=== PATIENT | male | born 1940 | race Caucasian/White ===

== ENCOUNTER 2017-02-24 06:48 | Inpatient (IN) | payer MEDICARE, OTHER ==
[2017-02-24] VITALS (13 sets, daily range): BP systolic 94–161; BP diastolic 53–89; PULSE 81–130; RESP 22–33; O2SAT 93–96
[~2017-02-24] VITALS: Ht 177.8 cm; Wt 71.4 kg
[~2017-02-24 06:48] MED LIST: ASPI81TA3 PO; ATOR40TA69 PO; CLOP75TA28 PO; FINA5TAB9 PO; METO25TA6 PO; PANT40TA3 PO; POLY17PO6 PO; TAMS0.4C98 PO; VIT1CAPS46 PO
--- NOTE | 2017-02-24 06:54 | ED.REPORT ---
HPI-General Illness Date of Service February 24, 2017 ED Provider: Shawn Beckham MD 76 year old male with a history of pancreatic cancer presents to the ER via EMS accompanied by his complaining of generalized weakness onset at 02:00 this morning. He states that symptoms onset with fever and chills when he awakened during the night to use the restroom. While walking to the restroom he became globally weak, lowered himself to the ground and became incontinent of stool. Patient denies abdominal pain, and any other symptoms currently. He currently receives regular chemotherapy treatments, and is scheduled for an infusion today. He has pulmonary emboli, anticoagulated on Lovenox. Nursing Notes Stated Complaint: WEAKNESS Chief Complaint: General Complaint Nursing Notes Reviewed: Yes Allergies: Coded Allergies: No Known Allergies (Verified Allergy, Unknown, 02/28/16) Scheduled Aspirin Chew (Aspirin Chew) 81 Mg Chew 81 MG PO DAILY Atorvastatin Calcium (Atorvastatin Calcium) 40 Mg Tablet 40 MG PO HS Clopidogrel (Clopidogrel) 75 Mg Tablet 75 MG PO DAILY Enoxaparin (Lovenox) 80 Mg/0.8 Ml Syringe 70 MG SUBQ Q12 Finasteride (Finasteride) 5 Mg Tablet 5 MG PO DAILY Metoprolol Tartrate (Metoprolol Tartrate) 25 Mg Tablet 12.5 MG PO MORNING Pantoprazole DR (Pantoprazole DR) 40 Mg Tablet.dr 40 MG PO BID Tamsulosin (Flomax) 0.4 Mg Capsule 0.4 MG PO MORNING Vit C/E/Zn/Coppr/Lutein/Zeaxan (Preservision Areds 2 Softgel) 1 Each Capsule 1 EACH PO BID Scheduled PRN Polyethylene Glycol 3350 (Miralax) 17 Gm Powd.pack 17 GM PO MORNING PRN PRN For Constipation General Time Seen by : 06:53 Chief Complaint Weakness Hx Obtained From: Patient Arrived By: Ambulance Sudden in Onset?: No Onset Occurred: 5 - 8 hours ago Symptom Duration: Since onset Associated with: Denies: Abdominal pain Pertinent Negative: Pt denies other symptoms Context Related History: Reports Cancer (Pancreatic) Similar Sx Previous: No Past Medical History Past Medical History Pancreatic cancer diagnosed February 2016 Pulmonary emboli Reports: Hyperlipidemia, Hypertension Past Surgical History Appendectomy Colon ressection Catheter placement Family History Noncontributory Smoking History Former Smoker Social History Drug Use: Denies drug use Other Social History: Good social support, Ambulatory Status Independent Review of Systems Full Review of Systems Constitutional: Reports: Chills, Fever, Malaise, Weakness - generalized Respiratory: Denies: Non-productive cough, Shortness of breath GI: Reports: Diarrhea, Denies: Abdominal pain, Constipation, Nausea, Vomiting Complete sys rev & neg: except as marked. Physical Exam Vital Signs Vital Signs Date Time Temp Pulse Resp B/P Pulse Ox O2 Delivery O2 Flow Rate FiO2 02/24/17 09:07 38.1 115 23 125/62 95 Nasal Cannula 2 02/24/17 08:52 38.1 115 23 125/62 95 Nasal Cannula 2 02/24/17 07:21 39.5 115 33 161/89 96 02/24/17 06:53 39.5 130 30 158/85 94 Room Air Initial VS: Reviewed Head / Eyes: Atraumatic, Normocephalic Neck: Supple, Non-tender, Full range of motion Extremities: Vascular intact, Neuro intact, No swelling, No tenderness Skin: Warm, Dry, No cyanosis Neurologic: Alert, Oriented, Nonfocal Psychiatric: Mood/affect normal, Behavior normal, Normal thought content General/Constitutional: Awake, Alert, Well developed Respiratory / Chest: Breath sounds NL, No respiratory distress, No rales, No rhonchi, No wheezing Cardiovascular: Regular rhythm, No murmurs Heart Rate / Rhythm: Positive: Tachycardia Abdomen: Soft, Non-tender, No guarding, No rebound, No distention Interpretation & Diagnostics Lab Results Interpretation Result Diagram: 02/24/17 0650 02/24/17 0650 Test 02/24/17 06:50 02/24/17 07:50 02/24/17 08:26 White Blood Count 4.5th/mm3 (3.8-10.1) Red Blood Count 4.98mil/mm3 (4.40-5.80) Hemoglobin 13.4g/dL (13.8-17.2) Hematocrit 42.3% (41.0-50.0) Mean Corpuscular Volume 84.9fL (81-100) Mean Corpuscular Hemoglobin 26.9pg (27.0-35.0) Mean Corpuscular Hemoglobin Concent 31.7% (32.0-37.0) Red Cell Distribution Width 17.2% (12.3-15.4) Platelet Count 166bil/L (150-400) Neutrophils (%) (Auto) 90.8% (40-74) Lymphocytes (%) (Auto) 6.3% (14-46) Monocytes (%) (Auto) 2.0% (4-12) Eosinophils (%) (Auto) 0.2% (0-5) Basophils (%) (Auto) 0% (0-3) Hold Purple Top Tube Received (Received) Prothrombin Time 11.4sec (8.1-12.5) Prothromb Time International Ratio 1.06ratio Hold Blue Top Tube Received (Received) Sodium Level 139mEq/L (134-144) Potassium Level 3.8mEq/L (3.5-5.2) Chloride Level 98mEq/L (97-108) Carbon Dioxide Level 11mmol/L (18-29) Blood Urea Nitrogen 11mg/dL (8-27) Creatinine 0.98mg/dL (0.76-1.27) Estimat Glomerular Filtration Rate 79mL/min (>59) Glucose Level 170mg/dL (60-99) Calcium Level 9.6mg/dL (8.5-10.1) Phosphorus Level 2.0mg/dL (2.5-4.9) Magnesium Level 2.0mg/dL (1.6-2.6) Total Bilirubin 3.5mg/dL (0.0-1.2) Aspartate Amino Transf (AST/SGOT) 163U/L (0-50) Alanine Aminotransferase (ALT/SGPT) 94U/L (0-44) Alkaline Phosphatase 311U/L (25-160) Troponin T 0.039ug/L (0.0-0.011) Total Protein 6.8g/dL (6.4-8.4) Albumin 3.9g/dL (3.4-5.0) Procalcitonin 2.12ng/mL (0.00-0.08) Hold [place] Top Tube Received (Received) Lactic Acid Level 6.1mmol/L (0.4-2.0) Urine Color Yellow (YELLOW) Urine Appearance Hazy (CLEAR,HAZY) Urine pH 6.0 (5.0-8.0) Urine Specific Lam[place] 1.015 (1.003-1.035) Urine Protein Tracemg/dL (NEG,TRACE) Urine Glucose (UA) Negativemg/dL (NEGATIVE) Urine Ketones Negativemg/dL (NEGATIVE) Urine Occult Blood Trace (NEGATIVE) Urine Nitrite Negative (NEGATIVE) Urine Bilirubin Negative (NEGATIVE) Urine Urobilinogen Normalmg/dL (NORMAL) Urine Leukocyte Esterase Negative (NEGATIVE) Urine RBC 3-10/hpf (0-2) Urine WBC 0-5/hpf (0-5) Urine Epithelial Cells Occasional/hpf (NONE-MOD) Urine Crystals None seen (NONE SEEN) Urine Bacteria None/hpf (NONE-FEW) Urine Hyaline Casts None/lpf (NONE) Urine Granular Casts None seen (NONE SEEN) Urine Waxy Casts None seen (NONE SEEN) Urine Red Blood Cell Casts None seen (NONE SEEN) Urine White Blood Cell Casts None seen (NONE SEEN) Urine Mucus None seen (None Seen) Urine Trichomonas None seen (NONE SEEN) Urine Yeast None (NONE SEEN) Urinalysis Comment None Urine Culture Reflexed Not indicated ECG Interpretation ECG Interpretation: Sinus tachycardia, rate [address] wave changes Prolonged QT interval Time: 08:15 Interpreted by: ED physician X-Ray Chest Interpretation Chest Xray Interpretation: IMPRESSION: Chronic diffuse interstitial changes. No acute disease Dictated by: Rony Philippe M.D. on 02/24/2017 at 7:57 Approved by: Rony Philippe M.D. on 02/24/2017 at 8:00 View: Portable, 1 view Interpretation / Wet Read by: Interpret - Radiologist Re-Eval/Medical Decision Med Decision/Clinical Course Patient came in looking quite ill but has responded very well to IV fluids Tylenol and modest pain medication. Will be admitted for sepsis, unknown source , to [facility]. Source of Hx: Old records Time of Eval: 08:15 Re-Evaluation/Progress Note: Discussed lab and imaging results and need for admission. Patient is amenable to the plan. All other questions addressed. Consultation #1: Referral / Consult Name: Annette Bautista MD Consulted With: On-call physician (Oncology) Call Returned at: 08:57 Aix Architect: Will see patient Consultation #2: Referral / Consult Name: Bishnu eMdina MD Consulted With: Hospitalist Call Returned at: 08:59 Aix Architect: Agrees with eval, Agrees with plan, Accepts admit Counseled Regarding: Diagnosis, Lab results, Need for admission Discharge & Departure Primary Impression: Sepsis Sepsis type: sepsis due to unspecified organism Qualified Code: A41.9 - Sepsis, unspecified organism Additional Impression: Pancreatic cancer Disposition: ADMITTED TO HOSPITAL Discharge Condition All VS Reviewed: Yes Condition: Improved [facility] Attestation Portions of this note were transcribed by Mirtha Cee. I, Dr. Beckham, personally performed the history, physical exam and medical decision-making; I reviewed and confirmed the accuracy of the information in the transcribed note. Signed by: Vadim Ram, 02/24/2017 at 09:00 copies to: [facility] Shawn Beckham MD February 24, 2017 06:54 MIRTHA CEE February 24, 2017 06:59
[2017-02-24] MEDS ORDERED: 0.9% Sodium Chloride 1,000 ML IV ONE (07:22)
[2017-02-24] MEDS ORDERED: Piperacillin-Tazo 3.375 Gm Inj 3.375 GM in Dextrose 5% Minibag Plus 50 ML IV ONE (07:25)
[2017-02-24 07:31] LABS: BASOPHILS % (AUTO) 0 % (0-3); EOSINOPHILS % (AUTO) 0.2 % (0-5); Mean Corpuscular Hemoglobin 26.9 pg (27.0-35.0); Mean Corpuscular Volume 84.9 fL (81-100); NEUTROPHILS % (AUTO) 90.8 % (40-74); Platelet Count 166 bil/L (150-400)
[2017-02-24 07:34] LABS: INR 1.06 ratio
--- NOTE | 2017-02-24 08:02 | DRSVH ---
PROCEDURE: X-RAY CHEST ONE VIEW, PORTABLE ([id number]) INDICATIONS: fever TECHNIQUE: One view of the chest was acquired. COMPARISON: [facility], CR, XR CHEST 1VW (PORTABLE), 07/20/2016, 23:10. FINDINGS: Surgical changes and devices: Left chest port with the tip projecting in the upper SVC as before. Lungs and pleura: No pleural effusions or pneumothorax. Lungs are clear. Diffuse interstitial campbell ges Mediastinum: Mediastinal contours appear normal. Heart size is normal. Bones and chest wall: No suspicious bony lesions. Lateral curvature of the spine. Overlying soft ti ssues appear unremarkable. IMPRESSION: Chronic diffuse interstitial changes. No acute disease Dictated by: Rony Philippe M.D. on 02/24/2017 at 7:57 Approved by: Rony Philippe M.D. on 02/24/2017 at 8:00
[2017-02-24 08:04] LABS: TROPONIN T 0.039 ug/L (0.0-0.011)
[2017-02-24] MEDS ORDERED: 0.9% Sodium Chloride 1,000 ML IV SCH ×2 (08:15→18:40)
[2017-02-24] MEDS ORDERED: LOV80 SUBQ (08:36)
[2017-02-24] MEDS ORDERED: Doxycycline Inj 100 MG in Dextrose 5% 100 ML IV ONE (08:55)
[2017-02-24] MEDS ORDERED: Tobramycin per Pharmacist XX ONE (08:55)
[2017-02-24] MEDS ORDERED: Vancomycin Dose per Pharmacist XX ONE (08:55)
[2017-02-24 09:00] LABS: APPEARANCE,URINE HAZY (CLEAR,HAZY); COLOR,URINE YELLOW (YELLOW); OCCULT BLOOD,URINE TRACE (NEGATIVE); UROBILINOGEN,URINE NORMAL (NORMAL)
[2017-02-24] MEDS ORDERED: Doxycycline Inj 100 MG in Dextrose 5% Minibag Plus 100 ML IV ONE (09:06)
[2017-02-24] MEDS ORDERED: Vancomycin Inj 1,000 MG in IV Premix 1 EACH IV ONE (09:30)
[2017-02-24] MEDS ORDERED: Ondansetron 2 mg/mL 2 mL Inj IVPUSH PRN (09:50)
[2017-02-24] MEDS ORDERED: Alum-Mag Hydrox-Simeth 30 mL Suspension PO PRN ×2 (09:50→10:25)
[2017-02-24] MEDS ORDERED: Polyethylene Glycol (PEG) 17 Gm Powder PO PRN (10:25)
[2017-02-24] MEDS: Piperacillin-Tazo 3.375 Gm Inj 3.375 GM in Dextrose 5% Minibag Plus 50 ML IV SCH ×2 (16:41→23:35)
[2017-02-24] MEDS ORDERED: HepLOK Flush 100 unit/mL 5 mL Inj IVFLUSH PRN (17:05)
[2017-02-24] MEDS ORDERED: Sodium Chloride LOK Flush 10 mL Syringe IVFLUSH PRN ×2 (17:05)
[2017-02-24] MEDS: 0.9% Sodium Chloride 250 ML IV SCH (18:01)
--- NOTE | 2017-02-24 18:07 | PCM.HPMED ---
Subjective Date of Service February 24, 2017 Primary Provider: Admitting Physician: Bishnu Medina MD [facility]ending Physician: Bishnu Medina MD Admit Status: From the Emergency Department Chief Complaint: WEAKNESS History of Present Illness: Mr Hooks is a 76-year-old gentleman with a history of pancreatic cancer currently on chemotherapy, CAD with prior AK and stent placement who presented to the emergency department with generalized weakness that started early this morning. Associated symptoms include subjective RUQ abdominal pain, fever and chills. He states that he otherwise has been feeling well and denies sick contacts. He reports one episode of diarrhea but states that this is not abnormal for him. He states that he is followed by Dr. Smith for his chemo and states that he was scheduled for infusion today (02/24). Last chemo was two weeks ago. He reports biliary stent placement x2, the first done at the [facility] and the second when he was traveling out of [facility]. He states that he had nearly identical symptoms when the first stent became occluded, which was in place for about 6months before he had any issues. He denies nausea, vomiting, bloody or dark tarry stool, decreased appetite, chest pain, shortness of breath, headache, dizziness or focal weakness. Of note, patient reports a history of pulmonary emboli for which he is currently anticoagulated on Lovenox. In the ED: vitals 39.5, BP 158/85, HR 130, RR 30, SpO2 94% on room air. Labs: AST/ALT 163/94, alk phos 311, total bili 3.5; lactic acid 6.1, procalcitonin 2.12, troponin 0.039, wbc 4.5 with left shift, Hb 13.4, Hct 42.3, plts 166, sodium 139, potassium 3.8, chloride 98, bicarb 11, BUN 11, creatinine 0.98, glucose 170. ECG showing sinus tachycardia, rate 122, PVC, nonspecific ST wave changes and prolonged QT interval. Chest xray shows chronic diffuse interstitial changes but no acute disease. Review of Systems: A comprehensive review of systems was conducted with the patient and found to be negative except as above in the History of Present Illness. 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 Surgical History Cardiac stent in 2014 TURP 2014 Bladder diverticulectomy 1989 Green light laser photo vaporization of the prostate 1999 Colon resection 1995 Appendectomy Colon resection Catheter placement Family History Coronary artery disease Social History Occupation: Retired [employer] Hx Alcohol Use: No Hx Substance Use: No Hx Tobacco Use: Yes (smoked pack a day for 5 years) Smoking Status: Former Smoker Years of Smokin Living Arrangement: with Family Exam Vital Signs Vital Sign - Last Date Time Temp Pulse Resp B/P Pulse Ox O2 Delivery O2 Flow Rate FiO2 02/24/17 10:15 106 02/24/17 10:04 36.4 26 99/56 96 Nasal Cannula 2.00 Exam General: Chronically ill-appearing and thin, elderly man. Appears uncomfortable but in no acute distress. Appropriately interactive HEENT: Normocephalic, atraumatic.PERRLA, no scleral icterus, mucosa dry. Neck: Supple, nontender, no JVD/lymphadenopathy or thyromegaly. Cardiovascular: Regular rate and rhythm with no murmurs, rubs, or gallops appreciated Pulmonary: Clear to auscultation bilaterally with no crackles, wheezes, or rhonchi. Abdomen: Soft, tender to palpation in RUQ, no rebound or guarding. No masses or hepatomegaly appreciated. Bowel tones present. Extremities: No clubbing, cyanosis, edema, or lymphadenopathy appreciated. Skin: Jaundice, normal temperature with decreased turgor; no rashes or ulcerations, ecchymosis lower abdomen bilaterally site of lovenox injections. Neurological: CN II-XII grossly intact. No focal motor or sensory deficits. Alert and oriented to person, place and time. Psychiatric: Normal mood and affect. Lab and Diagnostics Labs Laboratory Tests Test 02/24/17 06:50 02/24/17 07:50 02/24/17 08:26 White Blood Count 4.5th/mm3 (3.8-10.1) Red Blood Count 4.98mil/mm3 (4.40-5.80) Hemoglobin 13.4g/dL (13.8-17.2) Hematocrit 42.3% (41.0-50.0) Mean Corpuscular Volume 84.9fL (81-100) Mean Corpuscular Hemoglobin 26.9pg (27.0-35.0) Mean Corpuscular Hemoglobin Concent 31.7% (32.0-37.0) Red Cell Distribution Width 17.2% (12.3-15.4) Platelet Count 166bil/L (150-400) Neutrophils (%) (Auto) 90.8% (40-74) Lymphocytes (%) (Auto) 6.3% (14-46) Monocytes (%) (Auto) 2.0% (4-12) Eosinophils (%) (Auto) 0.2% (0-5) Basophils (%) (Auto) 0% (0-3) Hold Purple Top Tube Received (Received) Prothrombin Time 11.4sec (8.1-12.5) Prothromb Time International Ratio 1.06ratio Hold Blue Top Tube Received (Received) Sodium Level 139mEq/L (134-144) Potassium Level 3.8mEq/L (3.5-5.2) Chloride Level 98mEq/L (97-108) Carbon Dioxide Level 11mmol/L (18-29) Blood Urea Nitrogen 11mg/dL (8-27) Creatinine 0.98mg/dL (0.76-1.27) Estimat Glomerular Filtration Rate 79mL/min (>59) Glucose Level 170mg/dL (60-99) Calcium Level 9.6mg/dL (8.5-10.1) Phosphorus Level 2.0mg/dL (2.5-4.9) Magnesium Level 2.0mg/dL (1.6-2.6) Total Bilirubin 3.5mg/dL (0.0-1.2) Aspartate Amino Transf (AST/SGOT) 163U/L (0-50) Alanine Aminotransferase (ALT/SGPT) 94U/L (0-44) Alkaline Phosphatase 311U/L (25-160) Troponin T 0.039ug/L (0.0-0.011) Total Protein 6.8g/dL (6.4-8.4) Albumin 3.9g/dL (3.4-5.0) Procalcitonin 2.12ng/mL (0.00-0.08) Hold [place] Top Tube Received (Received) Lactic Acid Level 6.1mmol/L (0.4-2.0) Urine Color Yellow (YELLOW) Urine Appearance Hazy (CLEAR,HAZY) Urine pH 6.0 (5.0-8.0) Urine Specific [place] 1.015 (1.003-1.035) Urine Protein Tracemg/dL (NEG,TRACE) Urine Glucose (UA) Negativemg/dL (NEGATIVE) Urine Ketones Negativemg/dL (NEGATIVE) Urine Occult Blood Trace (NEGATIVE) Urine Nitrite Negative (NEGATIVE) Urine Bilirubin Negative (NEGATIVE) Urine Urobilinogen Normalmg/dL (NORMAL) Urine Leukocyte Esterase Negative (NEGATIVE) Urine RBC 3-10/hpf (0-2) Urine WBC 0-5/hpf (0-5) Urine Epithelial Cells Occasional/hpf (NONE-MOD) Urine Crystals None seen (NONE SEEN) Urine Bacteria None/hpf (NONE-FEW) Urine Hyaline Casts None/lpf (NONE) Urine Granular Casts None seen (NONE SEEN) Urine Waxy Casts None seen (NONE SEEN) Urine Red Blood Cell Casts None seen (NONE SEEN) Urine White Blood Cell Casts None seen (NONE SEEN) Urine Mucus None seen (None Seen) Urine Trichomonas None seen (NONE SEEN) Urine Yeast None (NONE SEEN) Urinalysis Comment None Urine Culture Reflexed Not indicated Result Diagram: 02/24/17 0650 02/24/17 0650 Microbiology 02/24/17 Blood Culture- pending 02/24/17 Influenza Screen - negative 02/24/17 Resp viral PCR- negative X-Rays, CTs and MRIs (02/24/17) X-RAY CHEST ONE VIEW, PORTABLE IMPRESSION: Chronic diffuse interstitial changes. No acute disease Dictated and approved by: Rony Philippe M.D. on 02/24/2017 at 7:57 . 12-lead ECG Sinus tachycardia with rate 122, nonspecific ST wave changes and a prolonged QT interval Assessment & Plan 75 y/o male with pancreatic cancer, biliary stent, and CAD with prior AK requiring stents. He presented with a one day history of generalized weakness associated with fever and chills. Admitted for further evaluation and management of sepsis secondary to possible acute cholangitis. Sepsis, acute. Present on admission. Active. -Met criteria on admission with: tachycardia, temp, lactic acid and suspected biliary as well as possible pulmonary source of infection. -Likely secondary to acute cholangitis and possibly cholecystitis or pneumonia. -CXR with diffuse interstitial changes, no focal consolidation. -Lactate 6.1, procalcitonin 2.01, WBC 4.5 w/left shift. -Blood cultures, pending -Trend lactate until normalized -Continue fluid resuscitation and zosyn -Repeat CBC, procalcitonin in morning Possible cholangitis, acute. Present on admission. Active. -Likely secondary to occlusion of biliary stent. Patient with pancreatic cancer and presented with fever, chills, jaundice and abnormal LFTs. Fever and/or shaking chills -Blood cultures, pending -Abd US, pending -Continue Zosyn, IV fluids as above. -NPO after midnight -Consider consult to Infectious Disease, due to active chemotherapy Lactic acidosis, acute. Present on admission. Active. -Likely secondary to sepsis. Lactate 6.1 at presentation. -Received 2L NS in the ED. -Continue fluid resuscitation -Trend lactate until normalized Pancreatic cancer, chronic. Present on admission. Active. - Diagnosed February 2016. Last chemo was 2wks ago and scheduled for infusion today ( 02/24). - Patient's Oncologist, Dr. Smith at [facility]. - Obtain outside records, contact Dr. Smith - Consider consult to on-call Oncology Elevated liver enzymes, acute. Present on admission. Active. -Likely secondary to acute cholangitis, biliary obstruction due to pancreatic cancer. -Elevated bilirubin at 3.5, AST 163, ALT 94, alk phos 311 -Management as above -Repeat CMP in the morning Elevated troponin, unknown significant. Present on admission. Active. -Likely secondary to overall infectious presentation and demand ischemia. -Troponin 0.0389 and trending up slightly 0.050. -Continue to trend -Consider consult to Cardiology if patient develops symptoms or troponin continues to increase. History of pulmonary emboli. Present on admission. Presumed stable. -Continue Lovenox 70mg subq q12h Hypertension, chronic. Present on admission. Presumed stable. -Patient is currently hypo-normotensive. -Hold home medications and resume when appropriate. Hyperlipidemia, chronic. Present on admission. Presumed stable. -Continue home atorvastatin 40mg qhs GERD, chronic. Present on admission. Presumed stable. -Continue home pantoprazole 40mg Coronary artery disease, chronic. Present on admission. Presumed stable. -Hx of AK with stents placed -Continue aspirin, clopidogrel, statin -Antihypertensives held, as above. High risk med: IV morhpine 1-2mg q4h prn Antiemetics, as needed Bowel regimen, as needed. Disposition: Patient admitted under inpatient status with expected length of stay > 2 midnights for severity of present symptoms, complexities of treatment plan and risk for adverse event. Resuscitation Status: CPR: Attempt Resuscitation Time spent 45 min Attending Statement Patient seen and examined with house staff. Agree with all attached documentation. Consuelo Mckeon DO February 24, 2017 10:25 Bishnu Medina MD February 25, 2017 16:16
--- NOTE | 2017-02-24 18:36 | NUR ---
Admit Pt arrived to [facility] with his by his side. A&O X3. Answered all questions appropriately. JU. Stated some numbness and tingling in his feet at times.Tele SR to ST in the low 100s. Lungs clear but decreased. No BM yes for us, voiding into the urinal madelyn colored urine. Morphine 1mg given for 5/10 headache. Pain decreased down to 1/10 after the morphine. L sided chest china cath is intact, flushing fine and drawing blood. Dressing is CDI. New clave placed. Pt also has a LFA IV site. Pt has been trying to sleep since admitting. Easily arousable.
[2017-02-24] MEDS: 0.9% Sodium Chloride 1,000 ML IV SCH (18:55)
--- NOTE | 2017-02-24 21:32 | CONS ---
[address] [address] CONSULTATION REPORT PATIENT: NIKKI MESSINA : 1940 MR#: [id number] ADMIT: 02/24/2017 JOB ID: [id number] INPATIENT MEDICAL ONCOLOGY CONSULTATION DATE OF SERVICE: 02/24/2017 DIAGNOSES: 1. Sepsis syndrome, suspect due to acute cholangitis. 2. Stage IV pancreatic adenocarcinoma, undergoing palliative chemotherapy. REQUESTING PROVIDER: Shawn Beckham MD HISTORY OF PRESENT ILLNESS: The patient is a 76-year-old gentleman with established diagnosis of metastatic pancreatic head adenocarcinoma under the care of Dr. Zarina Smith, medical oncologist at [facility]. His treatment was recently switched from first line Abraxane/Gemzar to second line folfirinox of which he received the first cycle two weeks ago. He was scheduled for cycle two to start today. The reason for the change in his regimen was evidence of disease progression on his CT scan on January 19, 2017, which showed a new metastatic lesion at the posterior dome of right hepatic lobe, segment seven, and a stable primary mass at head of pancreas. Additionally, there were small pulmonary emboli within branches of the right upper lobe and right lower lobe pulmonary arteries. The patient was doing well yesterday during the day, but relatively suddenly at about 2 a.m., he woke up with shaking chills and felt quite terrible. He was profoundly weak. He does not recall if he had severe abdominal pain. He got up to go to bathroom but fell down and was incontinent in his stool, which she says was only slightly loose. It was not diarrhea. Paramedics were called, and he was brought to our ED. At ED he was febrile, tachycardic, and tachypneic. Blood pressure has been high to normal. Recent blood pressures have been on the low side. On admit, temperature was 39.5, heart rate 130, respiratory rate 30, and blood pressure 158/85. Lactic acid was high at 6.1. Troponin T was positive at 0.039. Renal function is normal. Bilirubin is up at 3.5, whereas yesterday it was 0.6 at [facility]. The rest of LFTs are abnormal, including AST 163, ALT 94, and alkaline phosphatase 311. Procalcitonin is high at 2.12. INR is normal at 1.06. Urinalysis is negative. Blood cultures have been drawn and are pending. The patient has been started on IV Zosyn, first dose is already given. He is on therapeutic dose of Lovenox. Currently, he feels a little better. He has not had shaking chills. He denies nausea or vomiting. He does not feel hungry. He reports only mild epigastric discomfort on deep palpation. PAST MEDICAL HISTORY: 1. Metastatic pancreatic head adenocarcinoma diagnosed a year ago in February 2016 during hospital admission here at [facility]. He subsequently underwent a staging workup including ERCP and stent placement at [facility]. He has been treated with first-line Gemzar/Abraxane, and recently his regimen was changed to folfirinox. 2. The patient reports that in October 2016, he had a similar sepsis episode when he was in [place] and was admitted to hospital for a week long. During that hospital admission, his biliary stent was changed, and that remains in place. 3. Recent pulmonary emboli demonstrated on CT scan on January 19, 2017. He is on Lovenox at therapeutic dose. 4. Coronary artery disease status post coronary stents. He is on clopidogrel. His design editor is Dr. Muhammad. 5. Hypertension. 6. Hyperlipidemia. 7. Gastroesophageal reflux disease. 8. BPH. PAST SURGICAL HISTORY: 1. Coronary stenting in 2014. 2. TURP in 2014. 3. Bladder diverticulectomy. 4. Partial colectomy. 5. Biliary stent placement. SOCIAL HISTORY: He is and his is present at the hospital room. They live on [facility]. He does not smoke and does not drink alcohol. PHYSICAL EXAMINATION: He appears somewhat ill and weak. Awake, alert, oriented times three. Currently he is afebrile, and heart rate has improved to 95. Respiratory rate has improved to 22. Blood pressure is normal at 111/57. O2 saturation 96% on 2 L. Abdomen is slightly tender in epigastric area, otherwise unremarkable. IMPRESSION AND RECOMMENDATIONS: This gentleman has established diagnosis of metastatic pancreatic cancer and has a common bile duct stent in place. He presents with sudden severe sepsis, associated with bilirubin 3.5. His bilirubin was 0.6 yesterday at [facility]. He tells me that in October 2016, he had a similar episode of sepsis when he was in [place], and he was admitted for one week and his biliary stent had to be changed. I suspect the current episode is also due to cholangitis. Blood cultures have been drawn and are pending. The patient is not neutropenic. He has already improved after the first dose of IV Zosyn, although this may need to be changed to meropenem given better biliary penetration. I have contacted Dr. Viraj Mendoza, who will kindly evaluate this patient tomorrow morning. For now, we will continue IV Zosyn. Currently, he is hemodynamically stable. He has already received IV hydration at the ER. I will go ahead and place an order for normal saline 75 mL/hour. I will follow up with this patient tomorrow.
[2017-02-25] MEDS: 0.9% Sodium Chloride 1,000 ML IV SCH ×3 (01:43→18:32)
[2017-02-25 03:34] LABS: Mean Corpuscular Volume 82.9 fL (81-100); Platelet Count 97 bil/L (150-400)
[2017-02-25 04:01] LABS: MONOCYTES % (AUTO) 3 % (4-12); NEUTROPHILS % (AUTO) 73 % (40-74)
[2017-02-25 04:02] LABS: BASOPHILS % (AUTO) 0 % (0-3); EOSINOPHILS % (AUTO) 0 % (0-5)
[2017-02-25 04:16] LABS: TROPONIN T 0.032 ug/L (0.0-0.011)
[2017-02-25 04:27] LABS: Magnesium 2.8 mg/dL (1.6-2.6)
[2017-02-25 05:04] VITALS: PULSE 80
[2017-02-25 05:09] VITALS: BP 100/64; PULSE 75; RESP 24; O2SAT 96
--- NOTE | 2017-02-25 05:49 | NUR ---
Pain/Void Pt oriented x3. No c/o chest pain/discomfort. He c/o headache and chronic back pain. Morphine effective for back discomfort mostly. Motrin given for headache with relief reported. Afebrile. Patient has incontinence episode x1. Telemetry SR 80s. aware of Lactic acid trends and last one 1.8 this am. aware of Procalcitonin 67.22 this am.
[2017-02-25 07:37] VITALS: BP 111/63; PULSE 76; RESP 18; O2SAT 95; O2SAT 96
[2017-02-25] MEDS: Piperacillin-Tazo 3.375 Gm Inj 3.375 GM in Dextrose 5% Minibag Plus 50 ML IV SCH (07:41)
[2017-02-25 08:00] VITALS: PULSE 79
[2017-02-25] MEDS: Ondansetron 2 mg/mL 2 mL Inj IVPUSH PRN ×2 (09:25→14:05)
--- NOTE | 2017-02-25 10:11 | DRSVH ---
PROCEDURE: US ABDOMEN INDICATIONS: RUQ pain, pancreatic cancer TECHNIQUE: Real-time scanning was performed of the abdominal and retroperitoneal organs, with image documentatio n. COMPARISON: [facility], CT, CT ABD PELVIS W CON, 04/06/2016, 1:10. FINDINGS: Liver length: 16.24 cm Gallbladder Wall Thickness: 3.90 mm CBD: 1.08 cm Spleen length: 13.50 cm Right kidney length: 11.29 cm Left kidney length: 11.94 cm Aorta(Proximal): 2.09 cm Aorta(Mid): 1.70 cm Aorta(Distal): 1.70 cm Liver: Liver is diffusely increased in echogenicity. 1.5 cm rounded hyperechoic focus seen within t he right posterior lobe abscess and previous CT scan. identified. Normal hepatic size. Gallbladder: Stones and sludge present. Gallbladder was thickened and measured 4.8 mm. Biliary ducts: Biliary endoprosthesis is present and the bile duct measures roughly 10 mm. Pancreas: Pancreas is well visualized. Spleen: Spleen is normal in size and homogeneous in echotexture. Kidneys: Kidneys are normal in size and echotexture. No hydronephrosis or nephrolithiasis. No justin d masses. Multiple bilateral renal cysts redemonstrated. Aorta: Visualized aorta is normal in caliber at less than 3 cm. Iliacs: Not well-seen. IVC: Intrahepatic inferior vena cava is patent. Miscellaneous: No free abdominal fluid. Bladder calcification present measuring 15 mm. Postvoid th e urinary bladder estimated at 832 cc. IMPRESSION: 1. Increased hepatic echogenicity noted likely related to fatty infiltration of the liver but other s ources of hepatocellular disease cannot be excluded. Recommend clinical correlation. 2. Posterior right hepatic lobe echogenic liver mass similar to prior CT scan. Metastatic disease ca nnot be excluded. 3. Biliary endoprosthesis present and bile duct measuring 1.0 cm. 4. Stones and sludge within the gallbladder wall and gallbladder wall thickening. Recommend clinical correlation to exclude developing cholecystitis. 5. Pancreas suboptimally visualized. 6. Bilateral renal cysts. 7. Urinary bladder calcification. 8. 132 cc postvoid residual. Dictated by: Julian BERGER Interpreted: Zheng Saleh MD on 02/25/2017 at 10:04 Transcribed by: MIGUEL ANGEL on 02/25/2017 at 10:11 Approved by: Arvind Saleh M.D. on 02/25/2017 at 11:17
--- NOTE | 2017-02-25 11:24 | PCM.CHPMED ---
Subjective Date of Service: February 25, 2017 Primary Physician: Admitting Physician: Bishnu Medina MD Primary Care Physician: [facility] Attending Physician: Bishnu Medina MD Chief Complaint: Chief Complaint: Weakness and abdominal pain History of Present Illness: GI consult note 75-year-old male with history of hemicolectomy secondary diverticulitis, CAD with a prior [place] and stent placement, history of PE on Lovenox, and pancreatic cancer with liver metastases with 2 biliary stents scheduled to start chemotherapy yesterday who present to the emergency department due to generalized weakness and right upper quadrant pain that started yesterday morning with reported fever. Patient's pancreatic cancer was diagnosed last year. [facility] and he is being followed by Dr. Smith for treatment. Patient denies any change in bowel habits, no hematochezia/melena, no epigastric pain, but does report some nausea without emesis. Patient also denies additional ROS. Patient has been EGD performed February 27 of last year notable only for a distal duodenal extrinsic compression recommended referral to [facility] when the patient had a biliary stent placed. Patient had biliary stent placed at [facility] in April 2016. By October 2016 the stent had become obstructed and he had this removed with a new stent placed while in [place], [place]. patient states that he seems to have these issues every 6 months. In the ED the patient appeared to be in severe septic with fever 39.5, heart rate of 130, respiratory rate 30. He had elevated LFTs with an AST/ALT of 163/94, elevated alkaline phosphatase to 311, total bili of 3.5. This is since increased to 4.9 overnight. Initially the patient had a lactic acid of 6.1 which has since normalized. Abdominal ultrasound was performed and revealed a bile duct measuring 1 cm with endoprosthesis identified. There are stones and sludge in the gallbladder with wall thickening but no mention of fluid around the gallbladder. GI was consulted due to need for ERCP. Review of Systems: See history of present illness PMH Past Medical History Pancreatic cancer diagnosed February 2016 Coronary artery disease- inferior [place] in Jul 2015, requiring stent placement Hypertension Hyperlipidemia GERD BPH Urinary retention Pulmonary emboli Hx Any Other Health Problems?: YesHx Diabetes: No Surgical History Cardiac stent in 2014 TURP 2014 Bladder diverticulectomy 1989 Green light laser photo vaporization of the prostate 1999 Colon resection 1995 Appendectomy Colon resection Catheter placement Home Medications Aspirin 81mg daily Atorvastatin 40mg QHS Clopidogrel 75mg daily Enoxaparin 70mg subq Q12 Finasteride 5mg daily Metoprolol Tartrate 12.5mg QAM Pantoprazole DR 40mg BID Tamsulosin 0.4mg QAM Vit C/E/Zn/Coppr/Lutein/Zeaxan 1 EACH PO BID Polyethylene Glycol 17gm PO PRN For Constipation Allergies: Coded Allergies: No Known Allergies (Verified Allergy, Unknown, 02/28/16) Family History Family History No history of colon, gastric, or pancreatic cancer Social History Occupation: Retired [employer] Alcohol Use: NoHx Substance Use: NoHx Tobacco Use: Yes (smoked pack a day for 5 years) Smoking Status: Former Smoker Years of Smokin Living Arrangement: with Family Exam Vital Signs Vital Sign - Last Date Time Temp Pulse Resp B/P Pulse Ox O2 Delivery O2 Flow Rate FiO2 02/25/17 08:30 Supplement Oxygen 02/25/17 07:37 36.5 76 18 111/63 95 2.00 Intake and Output 02/24/17 02/24/17 02/25/17 Cumulative From/Thru 15:00 23:00 07:00 02/24/17 06:53 - 02/25/17 05:09 Intake Total 2800 ml 300 ml 2692 ml 5792 ml Output Total 400 ml 300 ml 300 ml 1000 ml Balance 2400 ml 0 ml 2392 ml 4792 ml Intake Oral 800 ml 300 ml 100 ml 1200 ml IV Total 2000 ml 2592 ml 4592 ml Output Urine Total 400 ml 300 ml 300 ml 1000 ml # Voids 1 1 2 # Bowel Movements 1 1 General: Alert, Oriented X3, No Acute Distress Head: Normal Eyes: EOMI Mouth: Mucous Membr Moist/[place] Chest & Lungs: Chest Wall Normal, Clear to auscultation & percussion Cardiovascular: Regular Rate/Rhythm, Other (1-2/6 systolic murmur) Pulses: Radial Abdomen: Non-tender Extremities: No cyanosis/clubbing/edma bilat Neurological: Grossly Neurologically Intact Lab and Diagnostics Result Diagram: 02/25/1731002/25/17310 Assessment & Plan Assessment Assessment 76-year-old gentleman undergoing chemotherapy for pancreatic cancer with metastases to the liver and placement of 2 biliary stents, history of 6 inches of colon resection due to diverticulitis, and history of [place] requiring intervention with stent presented due to weakness and right upper quadrant pain who was found to be in severe sepsis, liver enzyme elevation and common bile duct dilation on ultrasound. GI consult for need for ERCP. With this patient' s elevated LFTs, history of biliary stents with occlusion, and overall clinical picture is likely that this patient's second biliary stent has occluded with developing ascending cholangitis, acute cholecystitis, and resulting in severe sepsis. Patient seems to responding to IV fluids and biotics well. Procalcitonin still elevated at 67.22 and expect that this will decrease of next couple of days with antibiotics and IV fluid. However the only curative treatment is intervention with ERCP, or at least to obtain an EUS. Discussion was had with the patient on the need to transfer for intervention. Recommendation - Urgent Transfer to tertiary center in [place] for ERCP for decompression - Antibiotics with coverage of anaerobes - IVF - We will continue to follow. Thank you for allowing us to participate in the care of this patient Problems: Resuscitation Status: CPR: Attempt Resuscitation Attending Statement agree with assessment and plan above. suspect clogged biliary stent. Needs urgent transfer for ERCP for decompression and stent exchange Bennie Krause DO February 25, 2017 11:24 Magno Larson MD February 25, 2017 12:23
[2017-02-25 12:28] VITALS: BP 151/81; PULSE 74; RESP 18; O2SAT 98
--- NOTE | 2017-02-25 14:22 | NUR ---
Social Work: Initial Assessment D: Per EMR review, pt is a76 year old male admitted for sepsis, unknown source, pancreatic cancer. Pt is Medicare with no supplement; pt reports VA benefits with no LTC insurance. [facility] NOK is Laura Arrieta, , . Pt has completed AD but copies not on file- CLINICAL INFORMATICS MANAGER requested copy from pt's . Readmit score is moderate, 3/8. CLINICAL INFORMATICS MANAGER met with pt and spouse at bedside. Sw role explained and contact info provided. See initial assessment. Pt lives in a single story home with his on [address] [facility]. Pt is I with ADLs at baseline and uses no DME. Pt has no steps to enter his home and has never had home health or skilled rehab. Pt continues to drive and anticipates discharge home when medically stable. A: Pt who is I at baseline. P: Evolving; CLINICAL INFORMATICS MANAGER to continue to follow and assist with safe discharge planning as ordered by KALEE Jackson Addendum: 02/25/17 at 1432 by DEVANG ROSSI Amended: Links added.
--- NOTE | 2017-02-25 14:24 | PCM.PNMED ---
Subjective Date of Service February 25, 2017 Subjective 76 y/o male with a history of pancreatic cancer with liver metastases and biliary stents who presented to the ED with a one day history of generalized weakness and RUQ pain. Admitted for further evaluation and management of sepsis secondary to acute cholangitis. No acute events overnight. Procalcitonin significantly elevated this morning at 67.2 and total bilirubin 4.9. Patient is hemodynamically stable, afebrile and without complaint this morning. He reports mild nausea and RUQ abdominal pain, which is tolerable and well controlled with zofran and IV pushes of morphine. He denies chills, chest pain or palpitations, shortness of breath, vomiting, diarrhea or constipation. Exam Vital Signs Vital Sign - Last Date Time Temp Pulse Resp B/P Pulse Ox O2 Delivery O2 Flow Rate FiO2 02/25/17 07:37 36.5 76 18 111/63 95 Nasal Cannula 2.00 Intake and Output 02/24/17 02/24/17 02/25/17 Cumulative From/Thru 15:00 23:00 07:00 02/24/17 06:53 - 02/25/17 05:09 Intake Total 2800 ml 300 ml 2692 ml 5792 ml Output Total 400 ml 300 ml 300 ml 1000 ml Balance 2400 ml 0 ml 2392 ml 4792 ml Intake Oral 800 ml 300 ml 100 ml 1200 ml IV Total 2000 ml 2592 ml 4592 ml Output Urine Total 400 ml 300 ml 300 ml 1000 ml # Voids 1 1 2 # Bowel Movements 1 1 Exam General: Chronically ill-appearing and thin, elderly man. Appears uncomfortable but in no acute distress. Appropriately interactive HEENT: Normocephalic, atraumatic.PERRLA, no scleral icterus, mucosa dry. Neck: Supple, nontender, no JVD/lymphadenopathy or thyromegaly. Cardiovascular: Regular rate and rhythm with no murmurs, rubs, or gallops appreciated Pulmonary: Clear to auscultation bilaterally with no crackles, wheezes, or rhonchi. Abdomen: Soft, tender to palpation in RUQ, no rebound or guarding. No masses or hepatomegaly appreciated. Bowel tones present. Extremities: No clubbing, cyanosis, edema, or lymphadenopathy appreciated. Skin: Jaundice, normal temperature with decreased turgor; no rashes or ulcerations, ecchymosis lower abdomen bilaterally site of lovenox injections. Neurological: CN II-XII grossly intact. No focal motor or sensory deficits. Alert and oriented to person, place and time. Psychiatric: Normal mood and affect. IVs and Medications Medications Reviewed: Medications were reviewed in detail Lab and Diagnostics Laboratory Tests Test 02/24/17 10:35 02/24/17 12:50 02/24/17 15:34 02/24/17 18:30 Lactic Acid Level 2.7mmol/L (0.4-2.0) 2.4mmol/L (0.4-2.0) 2.5mmol/L (0.4-2.0) Troponin T 0.059ug/L (0.0-0.011) 0.050ug/L (0.0-0.011) Test 02/24/17 21:00 02/24/17 23:30 02/25/17 01:50 02/25/17 03:11 Lactic Acid Level 2.9mmol/L (0.4-2.0) 2.2mmol/L (0.4-2.0) 1.8mmol/L (0.4-2.0) Hold Wisdom Top Tube Received (Received) White Blood Count 8.2th/mm3 (3.8-10.1) Red Blood Count 3.56mil/mm3 (4.40-5.80) Hemoglobin 9.6g/dL (13.8-17.2) Hematocrit 29.5% (41.0-50.0) Mean Corpuscular Volume 82.9fL (81-100) Mean Corpuscular Hemoglobin 27.0pg (27.0-35.0) Mean Corpuscular Hemoglobin Concent 32.5% (32.0-37.0) Red Cell Distribution Width 17.7% (12.3-15.4) Platelet Count 97bil/L (150-400) Neutrophils (%) (Auto) 73% (40-74) Lymphocytes (%) (Auto) 11% (14-46) Monocytes (%) (Auto) 3% (4-12) Eosinophils (%) (Auto) 0% (0-5) Basophils (%) (Auto) 0% (0-3) Band Neutrophils % 13% (1-5) Sodium Level 141mEq/L (134-144) Potassium Level 3.6mEq/L (3.5-5.2) Chloride Level 109mEq/L (97-108) Carbon Dioxide Level 17mmol/L (18-29) Blood Urea Nitrogen 15mg/dL (8-27) Creatinine 0.86mg/dL (0.76-1.27) Estimat Glomerular Filtration Rate 92mL/min (>59) Glucose Level 94mg/dL (60-99) Calcium Level 7.2mg/dL (8.5-10.1) Magnesium Level 2.8mg/dL (1.6-2.6) Total Bilirubin 4.9mg/dL (0.0-1.2) Aspartate Amino Transf (AST/SGOT) 96U/L (0-50) Alanine Aminotransferase (ALT/SGPT) 86U/L (0-44) Alkaline Phosphatase 193U/L (25-160) Troponin T 0.032ug/L (0.0-0.011) Total Protein 4.1g/dL (6.4-8.4) Albumin 2.6g/dL (3.4-5.0) Procalcitonin 67.22ng/mL (0.00-0.08) Result Diagram: 02/25/17 0311 02/25/17 0311 Microbiology 02/24/17 Blood Culture- positive gram negative rods 02/24/17 Influenza Screen - negative 02/24/17 Resp viral PCR- negative 02/24/17 MRSA screen- pending. X-Rays, CTs and MRIs (02/24/17) X-RAY CHEST ONE VIEW, PORTABLE IMPRESSION: Chronic diffuse interstitial changes. No acute disease Dictated and approved by: Rony Philippe M.D. on 02/24/2017 at 7:57 . 12-lead ECG Sinus tachycardia with rate 122, nonspecific ST wave changes and a prolonged QT interval Additional Diagnostics (02/25/17) US ABDOMEN IMPRESSION: 1. Increased hepatic echogenicity noted likely related to fatty infiltration of the liver but other sources of hepatocellular disease cannot be excluded. Recommend clinical correlation. 2. Posterior right hepatic lobe echogenic liver mass similar to prior CT scan. Metastatic disease cannot be excluded. 3. Biliary endoprosthesis present and bile duct measuring 1.0 cm. 4. Stones and sludge within the gallbladder wall and gallbladder wall thickening. Recommend clinical correlation to exclude developing cholecystitis. 5. Pancreas suboptimally visualized. 6. Bilateral renal cysts. 7. Urinary bladder calcification. 8. 132 cc postvoid residual. Interpreted and approved by: Zheng Saleh MD on 02/25/2017 at 10:04 . Assessment & Plan Mr Hooks is a 76-year-old gentleman with history of pulmonary embolism on Lovenox, coronary artery disease with prior [place], and pancreatic cancer with liver metastases and biliary stents who presented to the emergency department with a one day history of generalized weakness, fever, chills and RUQ abdominal pain. Admitted for sepsis secondary to acute cholangitis. Acute cholangitis. Present on admission. Active. -Likely secondary to occlusion of biliary stent. Patient with pancreatic cancer status biliary stents x2. ( in April 2016; October 2016 in [place]) -Blood cultures-growing gram negative rods; Abd US as above. -Consulted Gastroenterology, recommending transfer for ERCP, biliary decompression and replacement of stent. -Consulted Infectious Disease, will follow antibiotic recommendations. -Will continue piperacillin-tazobactam pending Infectious Disease recs. Sepsis, acute. Present on admission. Resolved. -Met criteria with: tachycardia, temp, lactic acid and suspected acute cholangitis. -CXR with diffuse interstitial changes, no focal consolidation. -Lactate normalized -Procalcitonin 67.2 -Blood cultures-growing gram negative rods -Continue piperacillin-tazobactam, pending recommendations per Infectious Disease. -Follow CBC, procalcitonin Lactic acidosis, acute. Present on admission. Resolved. -Likely secondary to sepsis. Lactate 6.1 at presentation and fluid resuscitated. -Lactate normalized. Pancreatic cancer, chronic. Present on admission. Active. - Diagnosed February 2016. Last chemo was 2wks ago and scheduled for infusion February. - Patient's Oncologist, Dr. Smith at [facility] in [place], [place]. - Reviewed outside records: Recently started on second line chemotherapy with Folfirinox due to progression of disease on Abraxane plus Gemzar. CT chest, abd & pelvis on 01/19/17 showed a new metastatic lesion in right hepatic lobe and no change in primary mass at head of the pancreas. Elevated liver enzymes, acute. Present on admission. Active. -Likely secondary to acute cholangitis, biliary obstruction due to pancreatic cancer. -Elevated bilirubin at 3.5, AST 163, ALT 94, alk phos 311 -Total bilirubin now 4.9 -Management as above -Arrange transfer for ERCP Elevated troponin, unknown significant. Present on admission. Stable. -Likely secondary to overall infectious presentation and demand ischemia. -Troponin trending down 0.032, max 0.059 Pulmonary emboli. Present on admission. Presumed stable. -CT chest, abd & pelvis on 01/19/17 as above- showed small pulmonary emboli within branches of RUL and RLL pulmonary arteries.. -Continue Lovenox 70mg subq q12h Hypertension, chronic. Present on admission. Presumed stable. -Patient is currently hypo-normotensive. -Hold home medications and resume when appropriate. Hyperlipidemia, chronic. Present on admission. Presumed stable. -Continue home atorvastatin 40mg qhs GERD, chronic. Present on admission. Presumed stable. -Continue home pantoprazole 40mg Coronary artery disease, chronic. Present on admission. Presumed stable. -Hx of [place] with stents placed -Continue aspirin, clopidogrel, statin -Antihypertensives held, as above. High risk med: IV morhpine 1-2mg q4h prn Antiemetics, as needed Bowel regimen, as needed. Disposition: Patient is pending transfer to facility with higher level of care for ERCP. VTE Prophylaxis: Sub-Q Enoxaparin Resuscitation Status: CPR: Attempt Resuscitation Attending Statement Patient seen and examined with house staff. Agree with all attached documentation. Consuelo Mckeon DO February 25, 2017 08:53 Bishnu Medina MD February 25, 2017 16:24
[2017-02-25] MEDS ORDERED: PIPERACILLIN TAZO IV SCH (14:53)
[2017-02-25] MEDS ORDERED: DEXTROSE 5% IV SCH (14:53)
--- NOTE | 2017-02-25 15:22 | CONS ---
[address] [address] CONSULTATION REPORT PATIENT: NIKKI MESSINA : 1940 MR#: [id number] ADMIT: 02/24/2017 JOB ID: [id number] INFECTIOUS DISEASE CONSULTATION: DATE OF SERVICE: 02/25/[address] Bautista for this timely consult. REASON FOR CONSULTATION: Ascending cholangitis with bacteremia. HISTORY OF PRESENT ILLNESS: The patient is a 76-year-old gentleman who was diagnosed almost one year ago today with stage IV pancreatic cancer. He has had a complex course which has included the placement of two separate stents to relieve obstruction; the most recent of which was placed in [place], [place] in October 2016. At that time, the patient reports that he was apparently infected and had some positive cultures though he does not know the details about that hospitalization. More recently, the patient has been changed from his initial chemotherapy to a combination chemo known as FOLFIRINOX which is a combination of [place], 5-FU, leucovorin, and irinotecan. He has only received one cycle of this medicine however. He was scheduled to receive a second dose today or yesterday but was unable to do that because of an acute illness which started yesterday. Basically yesterday the patient had the abrupt onset of fevers, chills, profound weakness, to the point he could not even get out of bed, and some degree of confusion it sounds like, as he could not recall all the details today. These dramatic symptoms led to calling 911 and coming to our ED and being admitted to this facility with what seemed to be an obvious sepsis. These symptoms were associated with an abrupt jump in his bilirubin and some right upper quadrant pain which made the diagnosis of ascending cholangitis with bacteremia quite clear once multiple blood cultures turned positive. I was contacted yesterday late in the day by Dr. Bautista who requested discussion about optimal antibiotics, and we discussed whether the Zosyn or meropenem would be superior in these circumstances. I offered the opinion that they would be likely equivalent for ascending cholangitis and the decision was made to go ahead and start with Zosyn. Overnight, the patient states he has improved quite a bit. He is now much more lucid and is able to appreciate all the things that are going on. He has a good memory of the events starting at least this morning. He states he feels cold a bit but has not had shaking chills that he had yesterday. He is not aware of anymore fevers and he feels a bit stronger in that he was able to at least stand up by the side of the bed which is much, much better than he was yesterday. He continues to have right upper quadrant pain which is requiring narcotics. Given his diagnosis of ascending cholangitis in the presence of stents, efforts are underway to get him transferred to the [facility] where his original stent was placed and where his stents can be manipulated or removed as necessary. PAST MEDICAL HISTORY: 1. Pancreatic cancer stage IV, February 28, 2016, status post placement of two biliary stents; the most recent one in October 2016 in [place]. He has completed an initial trial of chemotherapy which apparently was not entirely successful and he is now on FOLFIRINOX as palliative chemotherapy. This is a quadrupled combination chemo. 2. History of pulmonary embolism. 3. Coronary artery disease with stents. 4. BPH. SOCIAL HISTORY: The patient is an ex-smoker having quit decades ago. He used to drink back in his [place] days but very little or none now. He lives with his on [facility]. 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 FAMILY HISTORY: Negative for tuberculosis in first and second-degree relatives. REVIEW OF SYSTEMS: Today, the patient has no significant headache. He denies visual change. He states he has not noticed his eyes being yellow. His nose is normal. He denies sore throat, or any particular trouble swallowing. No stiff neck. No cough, shortness of breath or chest pain is noted today. He does have right upper quadrant pain which is severe enough to require narcotics at this juncture. No left-sided abdominal pain however. As noted, his shaking chills and high fevers of yesterday have resolved. No urinary issues are noted, dysuria, urgency frequency. He had a single bout of diarrhea today which is atypical for him. He has noticed some pain in his lower extremities bilaterally which is unusual for him. No significant edema however. No skin rash has been noted. Remainder of the review of systems is negative. PHYSICAL EXAMINATION: Reveals a reasonably comfortable a gentleman who does appear a bit tired. Temperature 36.4, right now; he was as high as 39.5 during his first couple of measurements yesterday morning in the emergency department. Pulse 74, respiratory rate 18, blood pressure 151/81, saturating 98% on 2 L. He is in no respiratory distress. 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 His eyes are notable for scleral icterus which seems to be fairly mild. No conjunctivitis is noted. No conjunctival pallor is noted. Nose is normal. Teeth benign. No gingivitis, no pharyngitis. No cervical adenopathy. Lungs are clear. Cardiac exam: Regular rate and rhythm without significant murmur. He has a port in the left upper chest which appears benign. His abdomen is notable for some generalized distention. There is considerable tenderness in the right upper quadrant and to a lesser extent, epigastric tenderness. The left side of the abdomen and lower abdomen basically benign. He does not have a Schwab catheter. He does not have inguinal adenopathy. He does not have suprapubic fullness or tenderness. His extremities are free of cellulitis, edema or synovitis. He has reasonable peripheral pulses. Neurologically, he is intact but diffusely weak. LABORATORY DATA: Labs include white count 8200, hematocrit 30, platelet count 97,000. His white count has 13% band forms. Creatinine 0.86 today and yesterday was essentially the same. LFTs are notable for AST 96, ALT 86, alk phos 193, albumin 4.1. Procalcitonin an impressive 67.2, yesterday it was 2. Urinalysis without white cells. Blood cultures 8 of 8 positive for gram-negative rods all of which have grown in less than 24 hours. I spoke to the lab and these have an appearance consistent with Klebsiella but we will not have a final ID till tomorrow morning. Rapid nasopharyngeal multiplex viral screen is negative. MRSA swab of the nares is pending. IMAGING: Includes a chest radiograph which shows chronic interstitial changes without acute disease and an abdominal ultrasound which shows a liver mass which appears to be metastatic as well as a biliary stent and stones and sludge in the gallbladder and bilateral renal cysts. IMPRESSION: This patient clinically fits the definition of ascending cholangitis. He has new onset hyperbilirubinemia, right upper quadrant pain, fevers and chills. He comes close to meeting Ady guerra and yesterday he was confused but that is resolved today and at no point was he in shock so he would be best termed ascending cholangitis with high-grade bacteremia due to Klebsiella. The Zosyn seems to be working in that the patient is much improved today by multiple parameters even as his procalcitonin continues to blast off. RECOMMENDATIONS: 1. I would continue with Zosyn but increase to the maximal dose here which would be 4.5 g IV q.8 h. by continuous infusion. 2. I understand the patient will be transferred to [facility] in the near future and of course our Micro Lab will be discussing with them the results of the cultures tomorrow. 3. I will be out of town the next four days. If the patient does remain here, I will not be seen rounding the next four days but I will be available by telephone, text or email to assist in any way in management of this patient's antibiotics. Thank you very much for consulting us.
[2017-02-25 16:07] VITALS: BP 121/69; PULSE 79; RESP 16; O2SAT 98
[2017-02-25] MEDS: 0.9% Sodium Chloride 250 ML IV SCH (16:14)
--- NOTE | 2017-02-25 16:23 | PCM.DIMED ---
Consuelo Mckeon DO 02/25/17 1623: Discharge Instructions Date of Service February 25, 2017 Dates of Hospitalization February 24, 2017 at 09:13 Discharge Diagnosis Discharge Diagnosis Please refer to discharge summary. Medication Instructions Additional med instructions Per accepting physician at [facility]. Continued medications below are the patient's reported home medications (Defer to accepting physician at [facility] regarding continuation). Patient Instructions Patient Instructions You are being transferred to [facility] for a higher level of care not available here at [facility]. Bishnu Medina MD 02/26/17 0807: Discharge Instructions Attending's Statement Patient seen and examined with house staff. Agree with all attached documentation. Consuelo Mckeon DO February 25, 2017 16:23 Bishnu Mednia MD February 26, 2017 08:07
--- NOTE | 2017-02-25 16:36 | PCM.DC.MED ---
Discharge Summary Date of Service February 25, 2017 Dates of Hospitalization Date of Hospital Admission February 24, 2017 at 09:13 Date of Discharge: February 25, 2017 Providers: Admitting Physician: Bishnu Medina MD [facility]ending [facility]ician: Bishnu Medina MD Diagnosis at Time of Discharge Diagnosis at Time of Discharge Please refer to hospital course. Consultations Gastroenterology Infectious Disease Procedures XRay, CTs & MRIs (02/24/17) X-RAY CHEST ONE VIEW, PORTABLE IMPRESSION: Chronic diffuse interstitial changes. No acute disease Dictated and approved by: Rony Philippe M.D. on 02/24/2017 at 7:57 . ECG 12 Lead Sinus tachycardia with rate 122, nonspecific ST wave changes and a prolonged QT interval Other Diagnostics (02/25/17) US ABDOMEN IMPRESSION: 1. Increased hepatic echogenicity noted likely related to fatty infiltration of the liver but other sources of hepatocellular disease cannot be excluded. Recommend clinical correlation. 2. Posterior right hepatic lobe echogenic liver mass similar to prior CT scan. Metastatic disease cannot be excluded. 3. Biliary endoprosthesis present and bile duct measuring 1.0 cm. 4. Stones and sludge within the gallbladder wall and gallbladder wall thickening. Recommend clinical correlation to exclude developing cholecystitis. 5. Pancreas suboptimally visualized. 6. Bilateral renal cysts. 7. Urinary bladder calcification. 8. 132 cc postvoid residual. Interpreted and approved by: Zheng Saleh MD on 02/25/2017 at 10:04 . Brief History Mr Hooks is a 76-year-old gentleman with a history of pancreatic cancer currently on chemotherapy, CAD with prior OH and stent placement who presented to the emergency department with generalized weakness that started early this morning. Associated symptoms include subjective RUQ abdominal pain, fever and chills. He states that he otherwise has been feeling well and denies sick contacts. He reports one episode of diarrhea but states that this is not abnormal for him. He states that he is followed by Dr. Smith for his chemo and states that he was scheduled for infusion today (02/24). Last chemo was two weeks ago. He reports biliary stent placement x2, the first done at the [facility] and the second when he was traveling out of [facility]. He states that he had nearly identical symptoms when the first stent became occluded, which was in place for about 6months before he had any issues. He denies nausea, vomiting, bloody or dark tarry stool, decreased appetite, chest pain, shortness of breath, headache, dizziness or focal weakness. Of note, patient reports a history of pulmonary emboli for which he is currently anticoagulated on Lovenox. In the ED: vitals 39.5, BP 158/85, HR 130, RR 30, SpO2 94% on room air. Labs: AST/ALT 163/94, alk phos 311, total bili 3.5; lactic acid 6.1, procalcitonin 2.12, troponin 0.039, wbc 4.5 with left shift, Hb 13.4, Hct 42.3, plts 166, sodium 139, potassium 3.8, chloride 98, bicarb 11, BUN 11, creatinine 0.98, glucose 170. ECG showing sinus tachycardia, rate 122, PVC, nonspecific ST wave changes and prolonged QT interval. Chest xray shows chronic diffuse interstitial changes but no acute disease. Hospital Course Mr Hooks is a 76-year-old gentleman with history of pulmonary embolism on Lovenox, coronary artery disease with prior OH, and pancreatic cancer with liver metastases and biliary stents who presented to the emergency department with a one day history of generalized weakness, fever, chills and RUQ abdominal pain. Admitted for sepsis secondary to acute cholangitis. Acute ascending cholangitis. Present on admission. Active. -Likely secondary to occlusion of biliary stent. Patient with pancreatic cancer status biliary stents x2. ( in April 2016; October 2016 in [place]) -Blood cultures-growing gram negative rods; Abd US as above. -Consulted Gastroenterology, recommending transfer to [facility] for ERCP, biliary decompression and replacement of stent. -Consulted Infectious Disease, will follow antibiotic recommendations. -Zosyn 4.5g Q8h -1-2mg IV morhpine, prn Severe sepsis, acute. Present on admission. Improved with early goal directed therapy. -Met criteria with: tachycardia, temp, lactic acid and suspected acute cholangitis. -CXR with diffuse interstitial changes, no focal consolidation. -Lactate 6.1 at presentation and 1.8 at time of transfer. -Procalcitonin peak 67.2 -Blood cultures-growing gram negative rods, i.d. and sensitivity pending (will forward to Hospital when resulted) -Continue piperacillin-tazobactam, per Infectious Disease. Lactic acidosis, acute. Present on admission. Resolved. -Likely secondary to sepsis. Lactate 6.1 at presentation Stage IV adenocarcinoma of head of pancreas. Present on admission. Active. - Diagnosed February 2016. Last chemo was 2wks ago and scheduled for infusion February. - Patient's Oncologist, Dr. Smith at [facility] in [place], [place]. - Reviewed outside records: CA [id number] in April of 2016. Recently started on second line chemotherapy with Folfirinox on 02/10/17. Change in therapy due to progression of disease on Abraxane/Gemzar (05/2016-2016). CT chest, abd & pelvis on 01/19/17 showed a new metastatic lesion in right hepatic lobe and no change in primary mass at head of the pancreas. Elevated liver enzymes, acute. Present on admission. Active. -Likely secondary to acute cholangitis, biliary obstruction due to pancreatic cancer. -Elevated bilirubin at 3.5, AST 163, ALT 94, alk phos 311 -Total bilirubin now 4.9 up from 3.5 at presentation. -Management as above -Arrange transfer for ERCP Elevated troponin, unknown significant. Present on admission. Stable. -Likely secondary to overall infectious presentation and demand ischemia. -Troponin trending down 0.032, max 0.059 Pulmonary emboli. Present on admission. Presumed stable. -CT chest, abd & pelvis on 01/19/17 as above- showed small pulmonary emboli within branches of RUL and RLL pulmonary arteries.. -Continued home therapeutic Lovenox 70mg subq q12h Hypertension, chronic. Present on admission. Presumed stable. -Patient hypotensive at presentation, not requiring pressors. Held home antihypertensive. Hyperlipidemia, chronic. Present on admission. Presumed stable. -Continued home atorvastatin 40mg qhs GERD, chronic. Present on admission. Presumed stable. -Considered home pantoprazole 40mg Coronary artery disease, chronic. Present on admission. Presumed stable. -Hx of OH with stents in 2014 -Continued aspirin, clopidogrel, statin -Antihypertensives held, as above. Called transfer line at 1330 received call back at 1600 and spoke with accepting physician Dr. Shanice Carlton who informed she would make arrangements for transfer today/tonight for ERCP. Possibility of patient returning to [facility] was discussed and is certainly a possibility when diagnostic/ therapeutic interventions have been completed as deemed necessary by Physicians. Exam Vital Signs (Last) Date Time Temp Pulse Resp B/P Pulse Ox O2 Delivery O2 Flow Rate FiO2 02/25/17 16:07 36.5 79 16 121/69 98 Nasal Cannula 2.00 Exam General: Chronically ill-appearing and thin, elderly man. Appears uncomfortable but in no acute distress. Appropriately interactive HEENT: Normocephalic, atraumatic.PERRLA, no scleral icterus, mucosa dry. Neck: Supple, nontender, no JVD/lymphadenopathy or thyromegaly. Cardiovascular: Regular rate and rhythm with no murmurs, rubs, or gallops appreciated Pulmonary: Clear to auscultation bilaterally with no crackles, wheezes, or rhonchi. Abdomen: Soft, tender to palpation in RUQ, no rebound or guarding. No masses or hepatomegaly appreciated. Bowel tones present. Extremities: No clubbing, cyanosis, edema, or lymphadenopathy appreciated. Skin: Jaundice, normal temperature with decreased turgor; no rashes or ulcerations, ecchymosis lower abdomen bilaterally site of lovenox injections. Neurological: CN II-XII grossly intact. No focal motor or sensory deficits. Alert and oriented to person, place and time. Psychiatric: Normal mood and affect. Laboratory Tests 72 Hours Test 02/24/17 06:50 02/24/17 07:50 02/24/17 08:26 02/24/17 10:35 White Blood Count 4.5th/mm3 (3.8-10.1) Red Blood Count 4.98mil/mm3 (4.40-5.80) Hemoglobin 13.4g/dL (13.8-17.2) Hematocrit 42.3% (41.0-50.0) Mean Corpuscular Volume 84.9fL (81-100) Mean Corpuscular Hemoglobin 26.9pg (27.0-35.0) Mean Corpuscular Hemoglobin Concent 31.7% (32.0-37.0) Red Cell Distribution Width 17.2% (12.3-15.4) Platelet Count 166bil/L (150-400) Neutrophils (%) (Auto) 90.8% (40-74) Lymphocytes (%) (Auto) 6.3% (14-46) Monocytes (%) (Auto) 2.0% (4-12) Eosinophils (%) (Auto) 0.2% (0-5) Basophils (%) (Auto) 0% (0-3) Hold Purple Top Tube Received (Received) Prothrombin Time 11.4sec (8.1-12.5) Prothromb Time International Ratio 1.06ratio Hold Blue Top Tube Received (Received) Sodium Level 139mEq/L (134-144) Potassium Level 3.8mEq/L (3.5-5.2) Chloride Level 98mEq/L (97-108) Carbon Dioxide Level 11mmol/L (18-29) Blood Urea Nitrogen 11mg/dL (8-27) Creatinine 0.98mg/dL (0.76-1.27) Estimat Glomerular Filtration Rate 79mL/min (>59) Glucose Level 170mg/dL (60-99) Calcium Level 9.6mg/dL (8.5-10.1) Phosphorus Level 2.0mg/dL (2.5-4.9) Magnesium Level 2.0mg/dL (1.6-2.6) Total Bilirubin 3.5mg/dL (0.0-1.2) Aspartate Amino Transf (AST/SGOT) 163U/L (0-50) Alanine Aminotransferase (ALT/SGPT) 94U/L (0-44) Alkaline Phosphatase 311U/L (25-160) Troponin T 0.039ug/L (0.0-0.011) Total Protein 6.8g/dL (6.4-8.4) Albumin 3.9g/dL (3.4-5.0) Procalcitonin 2.12ng/mL (0.00-0.08) Hold [place] Top Tube Received (Received) Lactic Acid Level 6.1mmol/L (0.4-2.0) 2.7mmol/L (0.4-2.0) Urine Color Yellow (YELLOW) Urine Appearance Hazy (CLEAR,HAZY) Urine pH 6.0 (5.0-8.0) Urine Specific [place] 1.015 (1.003-1.035) Urine Protein Tracemg/dL (NEG,TRACE) Urine Glucose (UA) Negativemg/dL (NEGATIVE) Urine Ketones Negativemg/dL (NEGATIVE) Urine Occult Blood Trace (NEGATIVE) Urine Nitrite Negative (NEGATIVE) Urine Bilirubin Negative (NEGATIVE) Urine Urobilinogen Normalmg/dL (NORMAL) Urine Leukocyte Esterase Negative (NEGATIVE) Urine RBC 3-10/hpf (0-2) Urine WBC 0-5/hpf (0-5) Urine Epithelial Cells Occasional/hpf (NONE-MOD) Urine Crystals None seen (NONE SEEN) Urine Bacteria None/hpf (NONE-FEW) Urine Hyaline Casts None/lpf (NONE) Urine Granular Casts None seen (NONE SEEN) Urine Waxy Casts None seen (NONE SEEN) Urine Red Blood Cell Casts None seen (NONE SEEN) Urine White Blood Cell Casts None seen (NONE SEEN) Urine Mucus None seen (None Seen) Urine Trichomonas None seen (NONE SEEN) Urine Yeast None (NONE SEEN) Urinalysis Comment None Urine Culture Reflexed Not indicated Test 02/24/17 12:50 02/24/17 15:34 02/24/17 18:30 02/24/17 21:00 Troponin T 0.059ug/L (0.0-0.011) 0.050ug/L (0.0-0.011) Lactic Acid Level 2.4mmol/L (0.4-2.0) 2.5mmol/L (0.4-2.0) 2.9mmol/L (0.4-2.0) Test 02/24/17 23:30 02/25/17 01:50 02/25/17 03:11 Lactic Acid Level 2.2mmol/L (0.4-2.0) 1.8mmol/L (0.4-2.0) Hold Wisdom Top Tube Received (Received) White Blood Count 8.2th/mm3 (3.8-10.1) Red Blood Count 3.56mil/mm3 (4.40-5.80) Hemoglobin 9.6g/dL (13.8-17.2) Hematocrit 29.5% (41.0-50.0) Mean Corpuscular Volume 82.9fL (81-100) Mean Corpuscular Hemoglobin 27.0pg (27.0-35.0) Mean Corpuscular Hemoglobin Concent 32.5% (32.0-37.0) Red Cell Distribution Width 17.7% (12.3-15.4) Platelet Count 97bil/L (150-400) Neutrophils (%) (Auto) 73% (40-74) Lymphocytes (%) (Auto) 11% (14-46) Monocytes (%) (Auto) 3% (4-12) Eosinophils (%) (Auto) 0% (0-5) Basophils (%) (Auto) 0% (0-3) Band Neutrophils % 13% (1-5) Sodium Level 141mEq/L (134-144) Potassium Level 3.6mEq/L (3.5-5.2) Chloride Level 109mEq/L (97-108) Carbon Dioxide Level 17mmol/L (18-29) Blood Urea Nitrogen 15mg/dL (8-27) Creatinine 0.86mg/dL (0.76-1.27) Estimat Glomerular Filtration Rate 92mL/min (>59) Glucose Level 94mg/dL (60-99) Calcium Level 7.2mg/dL (8.5-10.1) Magnesium Level 2.8mg/dL (1.6-2.6) Total Bilirubin 4.9mg/dL (0.0-1.2) Aspartate Amino Transf (AST/SGOT) 96U/L (0-50) Alanine Aminotransferase (ALT/SGPT) 86U/L (0-44) Alkaline Phosphatase 193U/L (25-160) Troponin T 0.032ug/L (0.0-0.011) Total Protein 4.1g/dL (6.4-8.4) Albumin 2.6g/dL (3.4-5.0) Procalcitonin 67.22ng/mL (0.00-0.08) Microbiology Results 02/24/17 Blood Culture- positive gram negative rods, i.d. sensitivities pending. 02/24/17 Influenza Screen - negative 02/24/17 Resp viral PCR- negative 02/24/17 MRSA screen- pending. Discharge Medications Discharge Medications Aspirin Chew (Aspirin Chew) 81 Mg Chew 81 MG PO DAILY Prescribed by: NEREIDA VILLEDA MD Atorvastatin Calcium (Atorvastatin Calcium) 40 Mg Tablet 40 MG PO HS Prescribed by: NEREIDA VILLEDA MD Clopidogrel (Clopidogrel) 75 Mg Tablet 75 MG PO DAILY Prescribed by: NEREIDA VILLEDA MD Enoxaparin (Lovenox) 80 Mg/0.8 Ml Syringe 70 MG SUBQ Q12 (Reported) Finasteride (Finasteride) 5 Mg Tablet 5 MG PO DAILY (Reported) Metoprolol Tartrate (Metoprolol Tartrate) 25 Mg Tablet 12.5 MG PO MORNING ( Reported) Pantoprazole DR (Pantoprazole DR) 40 Mg Tablet.dr 40 MG PO BID (Reported) Tamsulosin (Flomax) 0.4 Mg Capsule 0.4 MG PO MORNING (Reported) Vit C/E/Zn/Coppr/Lutein/Zeaxan (Preservision Areds 2 Softgel) 1 Each Capsule 1 EACH PO BID (Reported) As needed Polyethylene Glycol 3350 (Miralax) 17 Gm Powd.pack 17 GM PO MORNING PRN PRN For Constipation (Reported) Additional med instructions Per accepting physician at [facility]. Continued medications below are the patient's reported home medications (Defer to accepting physician at [facility] regarding continuation). ACTIVE INPATIENT MEDICATIONS at time of transfer: Piperacillin-Tazobactam 4.5g Q8 IV Last administered on 02/25/17 16:22; Admin Dose 12.5 MLS/HR; Start 02/25/17 at 14:53 Enoxaparin Sodium 70 mg Q12 SUBQ Last administered on 02/25/17 07:42; Admin Dose 70 MG; Start 02/24/17 at 20:30 Morphine Sulfate 1-2 mg Q4H PRN IVPUSH Last administered on 02/25/17 15:02; Admin Dose 1 MG; Start 02/24/17 at 16:00 Sodium Chloride 1,000 ml @ 125 mls/hr Q8H IV Last administered on 02/25/17 09: 36; Admin Dose 125 MLS/HR; Start 02/24/17 at 18:55 Aspirin 81 mg DAILY PO Last administered on 02/25/17 09:02; Admin Dose 81 MG; Start 02/25/17 at 08:30 Atorvastatin Calcium 40 mg HS PO Last administered on 02/24/17 21:08; Admin Dose 40 MG; Start 02/24/17 at 21:00 Clopidogrel Bisulfate 75 mg DAILY PO Last administered on 02/25/17 09:02; Admin Dose 75 MG; Start 02/25/17 at 08:30 PRN: Al Hydrox/Mg Hydrox/Simethicone 30 ml Q6H PRN PO; Start 02/24/17 at 10:25 Ondansetron HCl 4 to 8 mg Q4H IVPUSH Last administered on 02/25/17 14:05; Admin Dose 8 MG; Start 02/24/17 at 10:25 Senna 17.2 mg BID PRN PO; Start 02/24/17 at 10:25 Polyethylene Glycol 17 gm 17 gm DAILY PRN PO; Start 02/24/17 at 10:25 Ibuprofen 400 mg 400 mg Q6H PRN PO Last administered on 02/25/17 14:57; Admin Dose 400 MG; Start 02/25/17 at 14:40 Followup Plan Disposition: Transfer to [facility]. Patient Instructions You are being transferred to [facility] for a higher level of care not available here at [facility]. Time spent 60 min Attending Statement Patient seen and examined with house staff. Agree with all attached documentation. Consuelo Mckeon DO February 25, 2017 16:36 Bishnu Medina MD February 26, 2017 08:08
--- NOTE | 2017-02-25 18:24 | NUR ---
Pain/discharge Pt reports intermittent abdominal pain, adequate relief with 2mg IV dilaudid. 400mg PO ibuprofen for TORRES, effective. 8mg IV zofran for nausea, no emesis. Voids per urinal. Tolerating small amounts clear liquids PO. NS running at 125cc/hr to L chest port-a-cath. Report called to Danilo Camilo and RACHEL [facility] Pt to transfer via [facility] at 1900.
== END 2017-02-25 19:36 | disposition short-term general hospital (02) | DRG 872 ==
LOC: SED 06:48 → PCC 09:13
PROVIDERS: ADMIT Hospitalist; ATTEND Hospitalist
DX: A41.89 Other specified sepsis (principal); K83.0 Cholangitis; E87.2 Acidosis; C25.0 Malignant neoplasm of head of pancreas; C78.7 Secondary malignant neoplasm of liver and intrahepatic bile duct; I27.82 Chronic pulmonary embolism; I24.8 Other forms of acute ischemic heart disease; Z79.01 Long term (current) use of anticoagulants; K21.9 Gastro-esophageal reflux disease without esophagitis; I10 Essential (primary) hypertension; R65.20 Severe sepsis without septic shock; N40.0 Benign prostatic hyperplasia without lower urinary tract symptoms; I25.2 Old myocardial infarction; Z95.5 Presence of coronary angioplasty implant and graft; Z79.82 Long term (current) use of aspirin

== ENCOUNTER 2017-03-22 03:41 | Inpatient (IN) | payer MEDICARE ==
[~2017-03-22] VITALS: Ht 175.3 cm; Wt 69.4 kg
[2017-03-22] VITALS (12 sets, daily range): BP systolic 94–126; BP diastolic 50–69; PULSE 78–93; RESP 14–24; O2SAT 94–100
[~2017-03-22 03:41] MED LIST changes: +LOV80 SUBQ
--- NOTE | 2017-03-22 03:45 | ED.REPORT ---
HPI-Abd Pain M 40 and Over Date of Service Mar 22, 2017 ED Provider: Dr. Santy Lantigua M.D. The patient is a 76 year old male with a medical history including pancreatic cancer, CAD, hypertension, and PE who presents to the ED via EMS with abdominal pain onset this evening. Associated symptoms include nausea, diarrhea, generalized weakness, and dizziness. The patient denies other symptoms. EMS found the patient with a BP of 100/60, and otherwise normal vital signs. He was given 4mg Zofran en route. The patient was recently admitted to the hospital on 02/24/17 for one night with acute ascending cholangitis and sepsis. He was also seen at the recently for two IVC filter placements after stopping anticoagulation. Nursing Notes Stated Complaint: ABDOMINAL PAIN Chief Complaint: Male Abdominal Pain Nursing Notes Reviewed: Yes Allergies: Coded Allergies: No Known Allergies (Verified Allergy, Unknown, 02/28/16) Scheduled Aspirin Chew (Aspirin Chew) 81 Mg Chew 81 MG PO DAILY Atorvastatin Calcium (Atorvastatin Calcium) 40 Mg Tablet 40 MG PO HS Clopidogrel (Clopidogrel) 75 Mg Tablet 75 MG PO DAILY Enoxaparin (Lovenox) 80 Mg/0.8 Ml Syringe 70 MG SUBQ Q12 Finasteride (Finasteride) 5 Mg Tablet 5 MG PO DAILY Metoprolol Tartrate (Metoprolol Tartrate) 25 Mg Tablet 12.5 MG PO MORNING Pantoprazole DR (Pantoprazole DR) 40 Mg Tablet.dr 40 MG PO BID Tamsulosin (Flomax) 0.4 Mg Capsule 0.4 MG PO MORNING Vit C/E/Zn/Coppr/Lutein/Zeaxan (Preservision Areds 2 Softgel) 1 Each Capsule 1 EACH PO BID Scheduled PRN Polyethylene Glycol 3350 (Miralax) 17 Gm Powd.pack 17 GM PO MORNING PRN PRN For Constipation General Time Seen by MD: 03:44 Chief Complaint Abdominal pain Hx Obtained From: Patient Arrived By: Walk-in Sudden in Onset?: No Onset Occurred: 9 - 12 hours ago Symptom Duration: Since onset Location: : Diffuse (Abdomen) Quality: Painful Severity: Current: Moderate Severity: Maximum: Moderate Pertinent Negative: Relieved by nothing Context Related History: Reports: Abdominal surgery Recent Healthcare: Recent doctor visit Past Medical History Past Medical History Pancreatic cancer diagnosed February 2016 Coronary artery disease- inferior ME in Jul 2015, requiring stent placement Hypertension Hyperlipidemia GERD BPH Urinary retention Pulmonary emboli Reports: Hyperlipidemia, Hypertension Past Surgical History Cardiac stent in 2014 TURP 2014 Bladder diverticulectomy 1989 Green light laser photo vaporization of the prostate 1999 Colon resection 1995 Appendectomy Catheter placement IVC filter placement Family History Coronary artery disease Smoking History Former Smoker Social History Drug Use: Denies drug use Other Social History: Good social support, Ambulatory Status Independent Review of Systems Constitutional: Reports: Weakness - generalized, Denies: Fever Respiratory: Denies: Non-productive cough, Shortness of breath GI: Reports: Abdominal pain, Diarrhea, Nausea, Denies: Vomiting Complete sys rev & neg: except as marked. Neurologic: Reports: Dizziness Physical Exam Initial Vital Signs Vital Signs (First) Date Time Temp Pulse Resp B/P Pulse Ox O2 Delivery O2 Flow Rate FiO2 03/22/17 03:43 36.4 80 15 117/50 100 Initial VS: Reviewed, Vital signs normal Head / Eyes: Atraumatic, Normocephalic Neck: Supple, Full range of motion Skin: Warm, Dry, No cyanosis Neurologic: Alert, Oriented, Nonfocal Psychiatric: Mood/affect normal, Behavior normal, Normal thought content General/Constitutional: Awake, Alert Distress / Hydration: Positive: Dehydration moderate Respiratory / Chest: Breath sounds NL, Breath sounds = bilat, No respiratory distress Cardiovascular: Heart rate NL, Regular rhythm, Heart sounds NL Tenderness/Guarding/Rebound: Positive: Tender diffuse Diffuse guarding ENT: Airway patent Mouth: Positive: Mucous membranes dry Interpretation & Diagnostics Lab Results Interpretation Result Diagram: 03/22/17 0345 03/22/17 0345 Test 03/22/17 03:45 03/22/17 04:07 White Blood Count 18.8th/mm3 (3.8-10.1) Red Blood Count 4.63mil/mm3 (4.40-5.80) Hemoglobin 12.2g/dL (13.8-17.2) Hematocrit 39.6% (41.0-50.0) Mean Corpuscular Volume 85.5fL (81-100) Mean Corpuscular Hemoglobin 26.3pg (27.0-35.0) Mean Corpuscular Hemoglobin Concent 30.8% (32.0-37.0) Red Cell Distribution Width 16.4% (12.3-15.4) Platelet Count 671bil/L (150-400) Neutrophils (%) (Auto) 82.9% (40-74) Lymphocytes (%) (Auto) 7.3% (14-46) Monocytes (%) (Auto) 7.1% (4-12) Eosinophils (%) (Auto) 1.6% (0-5) Basophils (%) (Auto) 0.2% (0-3) Prothrombin Time 12.7sec (8.1-12.5) Prothromb Time International Ratio 1.18ratio Sodium Level 142mEq/L (134-144) Potassium Level 4.2mEq/L (3.5-5.2) Chloride Level 106mEq/L (97-108) Carbon Dioxide Level 20mmol/L (18-29) Blood Urea Nitrogen 10mg/dL (8-27) Creatinine 1.20mg/dL (0.76-1.27) Estimat Glomerular Filtration Rate 63mL/min (>59) Glucose Level 188mg/dL (60-99) Calcium Level 9.2mg/dL (8.5-10.1) Magnesium Level 2.3mg/dL (1.6-2.6) Total Bilirubin 0.8mg/dL (0.0-1.2) Aspartate Amino Transf (AST/SGOT) 39U/L (0-50) Alanine Aminotransferase (ALT/SGPT) 21U/L (0-44) Alkaline Phosphatase 207U/L (25-160) Total Protein 5.9g/dL (6.4-8.4) Albumin 3.2g/dL (3.4-5.0) Lipase 16U/L (13-60) Lactic Acid Level 2.0mmol/L (0.4-2.0) ECG Interpretation ECG Interpretation: Sinus rhythm rate 76 Inferior infarct, old Prolonged QT interval Time: 04:00 Interpreted by: ED physician Re-Eval/Medical Decision Med Decision/Clinical Course 76-year-old male with history of an chronic cancer presents with nausea, diarrhea, dehydration, and abdominal pain. His abdomen is quite tender. Workup was initiated by me to include laboratory and abdominal CAT scan. His care is now being turned over change of shift to Dr. Juanita Mitchell. Source of Hx: Old records Time of Eval: 03:55 Patient Status: Condition improved Re-Evaluation/Progress Note: Discussed with patient plan for labs and CT with transfer of care to Dr. Mitchell at change of shift. Discharge & Departure Shift Change Sign-Out Patient Care Transferred: Yes (Dr. Mitchell) Discussed Complaint(s): Yes Laboratory Evaluation: Lab evaluation discussed Imaging Studies: Ordered, not yet done Response to Therapy: Improved Primary Impression: Abdominal pain Abdominal location: generalized Qualified Code: R10.84 - Generalized abdominal pain Vital Signs - All Vital Signs Date Time Temp Pulse Resp B/P Pulse Ox O2 Delivery O2 Flow Rate FiO2 03/22/17 03:43 36.4 80 15 117/50 100 Referrals: [facility] (PCP) Care Transferred to: Dr. Mitchell Care Transferred at: 06:00 Scribe Attestation Portions of this note were transcribed by Elaine El. I, Dr. Lantigua, personally performed the history, physical exam, and medical decision-making; I reviewed and confirmed the accuracy of the information in the transcribed note. Signed by: Vadim Burger, 03/22/2017, 05:58 copies to: [facility] Santy Lantigua MD Mar 22, 2017 03:45 ELAINE EL Mar 22, 2017 03:55
[2017-03-22] MEDS ORDERED: 0.9% Sodium Chloride 1,000 ML IV ONE ×2 (03:53→07:20)
[2017-03-22] MEDS ORDERED: Ondansetron 2 mg/mL 2 mL Inj IVPUSH PRN ×2 (03:55→07:45)
[2017-03-22 03:59] LABS: BASOPHILS % (AUTO) 0.2 % (0-3); EOSINOPHILS % (AUTO) 1.6 % (0-5); MONOCYTES % (AUTO) 7.1 % (4-12); Mean Corpuscular Hemoglobin 26.3 pg (27.0-35.0); Mean Corpuscular Volume 85.5 fL (81-100); NEUTROPHILS % (AUTO) 82.9 % (40-74); Platelet Count 671 bil/L (150-400)
[2017-03-22] MEDS: HYDROmorphone 0.5 mg/0.5 mL iSecure Syringe IVPUSH PRN ×5 (04:05→11:53)
[2017-03-22 04:12] LABS: INR 1.18 ratio
[2017-03-22 04:17] LABS: Magnesium 2.3 mg/dL (1.6-2.6)
[2017-03-22] MEDS ORDERED: Piperacillin-Tazo 3.375 Gm Inj 3.375 GM in Dextrose 5% Minibag Plus 50 ML IV ONE (07:20)
[2017-03-22 07:38] LABS: BASOPHILS % (AUTO) 0.2 % (0-3); EOSINOPHILS % (AUTO) 0.4 % (0-5); MONOCYTES % (AUTO) 6.7 % (4-12); Mean Corpuscular Hemoglobin 26.1 pg (27.0-35.0); Mean Corpuscular Volume 85.7 fL (81-100); NEUTROPHILS % (AUTO) 85.1 % (40-74); Platelet Count 501 bil/L (150-400)
[2017-03-22] MEDS: 0.9% Sodium Chloride 1,000 ML IV SCH ×3 (07:43→23:15)
--- NOTE | 2017-03-22 07:43 | DRSVH ---
PROCEDURE: CT ABDOMEN AND PELVIS WITH CONTRAST ([id number]) INDICATIONS: abd pain, elev WBC TECHNIQUE: After the administration of oral and intravenous contrast, 5 mm thick sections acquired from the diap hragms to the symphysis. 5 mm thick coronal and sagittal reformats were performed. For radiation do se reduction, the following was used: automated exposure control, adjustment of mA and/or kV accordi ng to patient size. COMPARISON: [facility], US, US ABDOMEN, 02/24/2017, 16:30. [facility], CT, C T ABD PELVIS W CON, 04/06/2016, 1:10. FINDINGS: Image quality: Excellent. ABDOMEN: Lung bases: Scattered atelectasis and or scarring in the lung bases. Small pericardial effusion. Solid organs: Intrahepatic bile duct dilatation and pneumobilia. There are scattered hypodense lesion s throughout the left and right lobes, the largest seen in the dome on image 13 in the right lobe gisela suring 2.3 cm and ill-defined margins raises suspicion of hepatic metastasis. Many of the others are too small to characterize definitively. Gallbladder demonstrates age indeterminate wall thickening. No cholelithiasis. There is an internal b iliary stent. Pancreatic duct is dilated. There is ill-defined heterogeneous attenuation in the regio n of the pancreatic head in this patient with a clinical history of pancreatic carcinoma Spleen grossly unremarkable. No adrenal nodules. Left pelvic kidney. Bilateral renal cysts with simp le appearance. No hydronephrosis identified. Nonobstructive 8mm right renal calculus. Large 9.2 cm si mple appearing right renal cyst. Peritoneum and bowel: There is moderate ascites. No free air identified. There is diffuse long segmen t small bowel wall thickening in the right and left abdomen. Adjacent inflammatory stranding is prese nt. No definite pneumatosis. No abscess seen. The colon is relatively normal other than incidental co lonic diverticula. Rectum is decompressed and the appendix is not well-seen. Nodes and vessels: No retroperitoneal or mesenteric adenopathy. Aorta and inferior vena cava are no rmal in caliber. IVC filter incidentally noted. The mesenteric vessels appear contrast opacified and patent Miscellaneous: No ventral hernias. PELVIS: Genitourinary: Borderline circumferential bladder wall thickening, nonspecific. There is a 9 mm calcu heydi seen within the dependent portion of the bladder Miscellaneous: No inguinal hernias or adenopathy. Bones: No suspicious bony lesions. No vertebral body compression fractures. IMPRESSION: Extensive, long segment small bowel wall thickening with adjacent stranding and scattered fluid. Find ings are nonspecific however probably reflect infectious or inflammatory enteritis. Ischemic etiology in the differential however the mesenteric vessels appear contrast opacified and patent. Recommend c linical correlation. Ill-defined hepatic lesions, many which are too small to characterize definitively however the appear ance of the dominant mass is suspicious for hepatic metastases in the setting of reported pancreatic carcinoma. Mild circumferential bladder wall thickening, technically nonspecific. Please correlate clinically wi th urinalysis findings and if needed cystoscopy could be performed for further assessment. Bilateral renal cysts. Pneumobilia. Small pericardial effusion. Scattered mild ascites. Additional findings as above. Results were personally discussed by telephone with Dr. Mitchell in the emergency department 0730 hour s 03/22/17. Dictated by: Rony Philippe M.D. on 03/22/2017 at 7:24 Approved by: Rony Philippe M.D. on 03/22/2017 at 7:42
[2017-03-22] MEDS ORDERED: Alum-Mag Hydrox-Simeth 30 mL Suspension PO PRN (07:45)
[2017-03-22] MEDS ORDERED: Polyethylene Glycol (PEG) 17 Gm Powder PO PRN (07:45)
[2017-03-22 08:23] LABS: TROPONIN T 0.024 ug/L (0.0-0.011)
--- NOTE | 2017-03-22 11:12 | NUR ---
Admit Pt admitted from ED to P[facility] room 2028. Report received from Gian MORALES. Pt transported by [facility] and was able to transfer independently into hospital bed. Pt is alert, oriented and cooperative with cares. IV access through port to left chest, also has left peripheral IV available. Pt is independent at baseline, but recently has experienced several falls due to lightheadedness/dizziness when standing. Pt c/o 4-5/10 aharp pain to lower abdomen. Administered 0.5mg IV Dilaudid with relief. Pt's at bedside.
[2017-03-22] MEDS: Famotidine Inj 20 MG in IV Premix 1 EACH IV SCH ×2 (11:28→20:54)
--- NOTE | 2017-03-22 11:40 | PCM.HPMED ---
Subjective Date of Service Mar 22, 2017 Primary Provider: Admitting Physician: Sorin Seth MD [facility] Attending Physician: Sorin Seth MD Admit Status: From the Emergency Department, Admit to [facility] Team Chief Complaint: 76-year-old man with history of pancreatic cancer and venous thromboembolic disease presents with acute onset abdominal pain History of Present Illness: The patient has had a complicated recent past medical history. He has stage IV pancreatic carcinoma and last received chemotherapy in February 2017. He had thromboembolic disease and was treated with therapeutic Lovenox. He was admitted to [facility] in February 2017 with ascending cholangitis. After discharge from this episode he was admitted to [facility] in early March 2017 with acute left leg pain attributed to both thrombosis and thigh hematoma. Due to this bleeding complication his Lovenox, Plavix and aspirin were discontinued. He was transferred to the [facility] for placement of an IVC filter. He was discharged from [facility] on 03/17. 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 He was ambulatory and in good general functional status. He went to bed on the night of admission and was reading in bed when at 2 in the morning he experienced sudden onset mid lower abdominal pain. The pain was constant in character. This located centrally in the lower abdomen. There is no radiation. This was associated with several bouts of diarrhea, and mild nausea. There was associated with presyncopal sensation when he ambulated to the bathroom. He experienced a nontraumatic fall due to presyncope. There is no effective change in position. No palliating or exacerbating factors. He feels he has had mild discomfort like this in the past, but not like the current complaint. He denies dysuria. He has had nephrolithiasis in the past which was a different sensation. He has no known bladder pathology. He has BPH. Review of Systems: 11 system ROS was performed with significant findings noted in the history of present illness. Additional findings include left upper leg chronic pain due to recent hematoma. Mild generalized back pain and shoulder pain. Allergies Coded Allergies: No Known Allergies (Verified Allergy, Unknown, 02/28/16) Home Medications Medication reconciliation incomplete at this time, but recent med list: Atorvastatin 40 mg Finasteride 5 mg daily Metoprolol 12.5 mg daily Pantoprazole 40 mg twice a day Tamsulosin 0.4 mg PMH # Pancreatic carcinoma - stage IV, status post pancreatic duct stent, FOLFIRINOX chemotherapy # History of ascending cholangitis - stented and treated 02/2017 # Thromboembolic disease # Hematoma on anticoagulant therapy - IVC filter and discontinuation of Lovenox 03/2017 # History of coronary artery disease - PR with RCA stent 2014, STEMI with PCI # BPH Family History No significant familial illness Social History 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 [employer] Hx Alcohol Use: No Hx Substance Use: No Hx Tobacco Use: Yes (smoked pack a day for 5 years) Smoking Status: Former Smoker Living Arrangement: with Family (with his in an RV.) Exam Vital Signs Vital Sign - Last Date Time Temp Pulse Resp B/P Pulse Ox O2 Delivery O2 Flow Rate FiO2 03/22/17 09:08 36.9 87 20 97/57 97 Room Air Intake and Output 03/21/17 03/21/17 03/22/17 Cumulative From/Thru 15:00 23:00 07:00 03/22/17 03:43 - 03/22/17 03:56 Intake Total 1000 ml 1000 ml Balance 1000 ml 1000 ml Intake IV Total 1000 ml 1000 ml Exam Constitutional: Pale but otherwise healthy-appearing; no acute distress; vital signs noted Eyes: sclerae anicteric, no conjunctival pallor, ENMT: ears, nose atraumatic; oral mucosa moist Neck: supple, JVD absent Chest: Scars are right IJ, respiratory symmetric, no pain or lesions Resp: auscultation clear, no wheezes, rales or dullness Cardiac: S1, S2, regular, no murmur Abdomen: bowel sounds present, no organomegaly, mild tenderness palpation lower quadrants centrally; mild right CVAT : inspection WNL Musculoskeletal: no joints with acute erythema, swelling Skin and soft tissues: no rash; no pitting edema Peripheral pulses: normal at wrist, feet, femoral Lymphatic: no adenopathy cervical Neurological: Cranial Nerves - face symmetric Reflexes - BJ, KJ diminished bilaterally Motor - 5/5 strength, normal tone Coordination - normal movement, no tremor Sensory - light touch reduced and toes Psych & Mental Status - alert and oriented Lab and Diagnostics Labs LDH 382, alkaline phosphatase 207, transaminase and bilirubin normal, lipase normal Procalcitonin 0.16, Lactic acid normal Result Diagram: 03/22/17 0730 03/22/17 0345 X-Rays, CTs and MRIs PROCEDURE: CT ABDOMEN AND PELVIS WITH CONTRAST ([id number]) IMPRESSION: Extensive, long segment small bowel wall thickening with adjacent stranding and scattered fluid. Findings are nonspecific however probably reflect infectious or inflammatory enteritis. Ischemic etiology in the differential however the mesenteric vessels appear contrast opacified and patent. Recommend clinical correlation. Ill-defined hepatic lesions, many which are too small to characterize definitively however the appearance of the dominant mass is suspicious for hepatic metastases in the setting of reported pancreatic carcinoma. Mild circumferential bladder wall thickening, technically nonspecific. Please correlate clinically with urinalysis findings and if needed cystoscopy could be performed for further assessment. Bilateral renal cysts. Pneumobilia. Small pericardial effusion. Scattered mild ascites. Additional findings as above. Results were personally discussed by telephone with Dr. Mitchell in the emergency department 0730 hours 03/22/17. Dictated by: Rony Philippe M.D. on 03/22/2017 at 7:24 . 12-lead ECG 03/22/17 04:00 Sinus rhythm rate 76, machine QTC 565, but does not seem accurate to me, left axis deviation and no acute ST-T wave change, Q III, aVF Assessment & Plan 76-year-old man with history of advanced pancreatic cancer and venous thromboembolic disease presents with acute onset abdominal pain. # Acute abdominal pain, present on admission. Pain out of proportion to physical exam findings. Imaging suggests small bowel inflammation. Not typical site for primary bacterial infection. Suspect vascular disease either arterial occlusion or venous thrombosis. When conservative management. 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 Recent history of thrombosis associated with hematoma on anticoagulation - Continue on no anticoagulants at present - Discussed risks benefits anticoagulants if current episode is thrombotic. # Diarrhea, acute. - C. difficile and enteric pathogen panel # Hyperglycemia, acute. No known diabetes. - Blood sugar monitoring 24 hours, correctional regular insulin if persistently hyperglycemic # Acute kidney injury versus CKD. Serum creatinine on admission 1.2. - Repeat BMP - IV hydration with isotonic Chronic or Stable but Actively Managed Problems: # Coronary artery disease # BPH Disposition: Patient is admitted to inpatient status with the expects dictation of at least 48 hours of acute inpatient care for acute abdomen. Pain Evaluation: Pain not Controlled VTE Prophylaxis: SCDs Resuscitation Status: DNR/DNI:Do Not Resuscitate/Intubate Time spent 70 minutes Sorin Seth MD Mar 22, 2017 11:40
[2017-03-22] MEDS: Dextrose 5% 500 ML IV SCH (11:57)
[2017-03-22] MEDS ORDERED: HYDROmorphone PCA 0.2 mg/mL 30 mL Inj IV PRN (12:00)
[2017-03-22] MEDS ORDERED: HYDROmorphone 0.5 mg/0.5 mL iSecure Syringe IVPUSH ONE (12:00)
[2017-03-22] MEDS ORDERED: HYDROmorphone 0.5 mg/0.5 mL iSecure Syringe IVPUSH PRN (12:00)
[2017-03-22 12:16] LABS: APPEARANCE,URINE CLEAR (CLEAR,HAZY); COLOR,URINE YELLOW (YELLOW); PH,URINE 6.5 (5.0-8.0)
[2017-03-22 12:17] LABS: OCCULT BLOOD,URINE NEGATIVE (NEGATIVE); UROBILINOGEN,URINE NORMAL (NORMAL)
[2017-03-22] MEDS: cefTRIAXone Inj 2,000 MG in Dextrose 5% Minibag Plus 50 ML IV SCH (12:18)
[2017-03-22] MEDS: HYDROmorphone PCA 0.2 mg/mL 30 mL Inj IV PRN (13:03)
--- NOTE | 2017-03-22 15:04 | NUR ---
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 After administration of 0.5mg Dilaudid IV push x2 with little to no relief MD was notified. MD ordered pt to be placed on Dilaudid BOILER WATER TESTER. Pt was given initial loading dose of 0.5 mg Dilaudid with standard dosing of 0.1 mg, 10 minute lockout and 0.6mg/hr max. Pt was reassessed after 2 hours. He had used a total of 0.9mg. He stated that he had been able to sleep for the last hour or so. His current pain level is 5/10. He was offered a bolus dose 0.3mg which he agreed to. Pt is at 95% on RA with respirations of 24/minute, he is sleeping but easily aroused. Addendum: 03/22/17 at 1836 by BROOKLYN FELIZ RN Pt pain assessment 6. Per protocol, pt given 3 loading doses of 0.2mg over 30 minutes. Pt pain improved to 2-3/10 which is acceptable.
[2017-03-22] MEDS: 0.9% Sodium Chloride 250 ML IV SCH (15:46)
[2017-03-22] MEDS ORDERED: Sodium Chloride LOK Flush 10 mL Syringe IVFLUSH PRN ×2 (15:50)
[2017-03-22] MEDS ORDERED: HepLOK Flush 100 unit/mL 5 mL Inj IVFLUSH PRN (15:50)
[2017-03-22] MEDS ORDERED: Dextrose 10% 250 ML IV PRN (16:05)
[2017-03-22] MEDS ORDERED: MAGN400T4 PO (20:30)
[2017-03-22] MEDS ORDERED: ONDA-53 PO (20:30)
[2017-03-22] MEDS ORDERED: DOCU-41 PO (20:30)
[2017-03-22] MEDS ORDERED: LANS30CA PO (20:30)
[2017-03-22] MEDS ORDERED: LISI-571 PO (20:30)
[2017-03-22] MEDS ORDERED: HYDR2TAB28 PO (20:30)
[2017-03-22] MEDS: Insulin Human REGular 300 Unit/3 mL Inj SUBQ SCH (20:30)
[2017-03-22] MEDS: metroNIDAZOLE Inj 1,000 MG in IV Premix 1 EACH IV SCH (20:54)
[2017-03-23] VITALS (9 sets, daily range): BP systolic 118–148; BP diastolic 69–85; PULSE 81–103; RESP 16–20; O2SAT 94–98
--- NOTE | 2017-03-23 01:04 | CONS ---
[address] [address] CONSULTATION REPORT PATIENT: NIKKI MESSINA : 1940 MR#: [id number] ADMIT: 03/22/2017 JOB ID: [id number] DATE OF SERVICE: 03/22/2017 CHIEF COMPLAINT: A 76-year-old gentleman with pancreatic cancer and acute abdominal pain, seen in consultation at the request of Sorin Seth MD. HISTORY OF PRESENT ILLNESS: The patient is a 76-year-old gentleman who was diagnosed with advanced pancreatic cancer last year. He was initially seen here in [facility] and then was transferred to [facility]. There, they were able to balloon dilate the duodenum and place a metal stent in the bile duct. After that, he has received FOLFIRINOX chemotherapy and has had some partial response despite some new lesions seen recently on the liver. He developed deep vein thrombosis and was started on Lovenox, but it was then complicated by a thigh hematoma and he had an inferior vena caval filter placed earlier this month at the [facility]. He developed severe abdominal pain at 2 o'clock in the morning, prompting him to come to the emergency department. From there, he was admitted. OTHER MEDICAL PROBLEMS: 1. Stage IV pancreatic cancer. 2. Venous thromboembolic disease. 3. Coronary artery disease with a myocardial infarction. 4. Benign prostatic hyperplasia. PRIOR PROCEDURES: 1. Common bile duct stent. 2. IVC filter placement in March 2017. 3. Right coronary artery stent in 2014, with another stent in 2015. MEDICATIONS: 1. Atorvastatin. 2. Finasteride. 3. Metoprolol. 4. Pantoprazole. 5. Tamsulosin. ALLERGIES: No known drug allergies. REVIEW OF SYSTEMS: A 12 point review of systems negative other than the pertinent positives noted in history of present illness and other medical problems. INVESTIGATIONS: WBC 16.1, hemoglobin 10.6, platelet count 501. Glucose 188, alkaline phosphatase 207. Lactic acid 1.1. CT abdomen and pelvis showed extensive long segment small bowel wall thickening with adjacent fat stranding and scattered fluid. Ill-defined hepatic lesions. Mild circumferential bladder wall thickening. Pneumobilia, ascites and pericardial effusion. PHYSICAL EXAMINATION: A 76-year-old gentleman in some discomfort. Temperature 37.0, pulse 78, respiratory rate 18, blood pressure 110/66, saturating 95% on room air. Eyes: Normal pupils, conjunctivae. Ears, nose, and throat: Normal external appearance. Respiratory: Normal effort, clear to auscultation. Cardiovascular: Regular rate and rhythm. Gastrointestinal: Complains of diffuse abdominal pain but not focally tender. Neurologic: No gross deficits. Psych: Alert, appropriate. Musculoskeletal: Normal strength in extremities. ASSESSMENT AND PLAN: A 76-year-old gentleman with advanced pancreatic cancer, on chemotherapy, with severe abdominal pain. There is no evidence of obvious filling defects or clots within the vasculature on the CT but his diagnosis would make him at a higher risk for mesenteric venous thrombosis. Given his overall clinical status, his goals of care need to be properly defined to see if he would want to undergo an operation if his condition further deteriorates. Otherwise at this point, consider management with bowel rest and antibiotics might be worthwhile. We also need to discuss the case with Hematology and Oncology or his oncologist to see if there is any value in restarting anticoagulation. At this point, I did not see any reason for acute surgical intervention. We will continue to follow. YURI
[2017-03-23] MEDS: Insulin Human REGular 300 Unit/3 mL Inj SUBQ SCH ×4 (02:17→20:30)
[2017-03-23 03:30] LABS: Mean Corpuscular Hemoglobin 25.8 pg (27.0-35.0); Mean Corpuscular Volume 86.8 fL (81-100)
[2017-03-23] MEDS: HYDROmorphone PCA 0.2 mg/mL 30 mL Inj IV PRN ×2 (05:06→18:05)
--- NOTE | 2017-03-23 05:41 | NUR ---
Pain Pt utilized PERFORMANCE ARCHITECT effectively for first half of shift until approx. 0150, when pt stated pain had reached 8-9/10 and requested a bolus. Clinician bolus of 0.2mg given x3 over thirty minutes with relief upon reassessment; however, by 0315, pt stated pain had again increased to 8-9/10. Per protocol, patient controlled dose increased to 0.2mg. Upon reassessment, pt states more effective for pain and able to rest. VSS, no telemetry. Pt c/o new onset pain to R thigh, states "It felt just like my left thigh did when I had the hematoma". Site assessed, no swelling, redness, heat, or other acute changes; paged and aware.
[2017-03-23] MEDS: Famotidine Inj 20 MG in IV Premix 1 EACH IV SCH ×2 (10:10→20:44)
[2017-03-23] MEDS: metroNIDAZOLE Inj 1,000 MG in IV Premix 1 EACH IV SCH (10:59)
[2017-03-23] MEDS: Dextrose 5% 500 ML IV SCH (11:00)
[2017-03-23] MEDS: cefTRIAXone Inj 2,000 MG in Dextrose 5% Minibag Plus 50 ML IV SCH (12:10)
[2017-03-23] MEDS: 0.9% Sodium Chloride 1,000 ML IV SCH (13:43)
--- NOTE | 2017-03-23 15:19 | DRSVH ---
PROCEDURE: US VEINOUS LEG DUPLEX UNILATERAL, RIGHT INDICATIONS: unilateral leg swelling, adenocarcinoma TECHNIQUE: Real-time imaging, as well as color and pulse Doppler interrogation, were performed of the lower extr emity deep veins from the inguinal ligament to the popliteal fossa. COMPARISON: None. FINDINGS: There is extensive occlusive clot throughout the right lower extremity extending from the c ommon femoral vein and involving the right femoral vein, popliteal vein and posterior tibial vein. Th ere is also occlusive clot seen within the peroneal vein. There is thrombus seen within the proximal greater saphenous vein. IMPRESSION: Extensive right lower extremity deep venous thrombosis. Additional clot seen within the p roximal greater saphenous vein. Findings were provided to the patient's nurse Amy Jin RN at th e time of the study 1245 hrs. on 03/23/17. Dictated by: Rony Philippe M.D. on 03/23/2017 at 14:06 Approved by: Rony Philippe M.D. on 03/23/2017 at 15:17
[2017-03-23] MEDS: 0.9% Sodium Chloride 250 ML IV SCH (15:46)
--- NOTE | 2017-03-23 15:49 | NUR ---
Pain Pt continues to use DIRECTOR OF NEUROLOGY with effective pain coverage. Pain in abdomen and left thigh reported at 2/10, pain to right thigh reported as 4-5/10.
--- NOTE | 2017-03-23 16:35 | NUR ---
Social Work: Initial Assessment D: EMR reviewed. Pt is a 76 y/o male admitted for abdominal pain and leukocytosis per H&P. SW met with pt at bedside. Pt was alert and oriented x3. SW explained role and wrote phone number on white board. Pt gave verbal consent to contact spouse, Laura Arrieta, for discharge planning. Pt declined DPOA/advanced directive ppw stating that he is "DNR". Pt's insurance is Medicare and PCP is Dr. Bell. Pt does not have LT insurance or VA benefits. Pt does not have hx of hh or SNF. Pt is independent with ADLs and does not own or use any DME. Pt lives in a single-story home with 2 steps to enter on [facility] with spouse. Pt states that spouse will provide transport via POV when pt is medically stable. SW will follow for needs. A: Pt who is independent and has pancreatic cancer at baseline. P: Pt states that spouse will provide transport via POV when pt is medically stable. SW will follow for needs. KALEE Blanca Addendum: 03/23/17 at 1639 by PAT ROSSI Amended: Links added.
--- NOTE | 2017-03-23 16:45 | NUR ---
Pt transfer to [facility] room 3030 Pt transported by wheelchair. Safe pt handoff given to Yogesh MORALES. Pt transferred from wheelchair to bed with SBA. Belongings were gathered and transported with pt. accompanied pt to his new room.
--- NOTE | 2017-03-23 17:27 | PCM.PNMED ---
Subjective Date of Service Mar 23, 2017 Subjective 76-year-old man with history of pancreatic cancer and venous thromboembolic disease presents with acute onset abdominal pain. No fevers or chills. Abdominal pain is significantly improved today. He has tolerated clear liquid diet. He is passing flatus. He feels he has moderate appetite. His main concern is new onset of right leg pain and swelling. Exam Vital Signs Vital Sign - Last Date Time Temp Pulse Resp B/P Pulse Ox O2 Delivery O2 Flow Rate FiO2 03/23/17 16:56 36.3 86 16 122/76 98 Room Air Intake and Output 03/22/17 03/22/17 03/23/17 Cumulative From/Thru 15:00 23:00 07:00 03/22/17 03:43 - 03/23/17 06:04 Intake Total 1000 ml 1526 ml 0 ml 3526 ml Output Total 400 ml 300 ml 700 ml Balance 1000 ml 1126 ml -300 ml 2826 ml Intake Oral 0 ml 0 ml 0 ml IV Total 1000 ml 1526 ml 3526 ml Output Urine Total 400 ml 300 ml 700 ml # Voids 0 1 1 Exam General: Pale elderly man in no acute distress HEENT: sclerae anicteric, oral mucosa moist Neck: no JVD Chest: clear to auscultation Cardiac: S1S2, regular, no murmur Abdomen: BS normal, mildly tender to palpate, no guarding, no rebound Extremities: Marked right leg edema, left leg normal Neuro: A&O, cranial nerves symmetric, motor strength 5/5, coordination normal IVs and Medications Medications Reviewed: Medications were reviewed in detail Lab and Diagnostics Result Diagram: 03/23/1730903/23/17 0310 X-Rays, CTs and MRIs PROCEDURE: CT ABDOMEN AND PELVIS WITH CONTRAST (PNL-7102) IMPRESSION: Extensive, long segment small bowel wall thickening with adjacent stranding and scattered fluid. Findings are nonspecific however probably reflect infectious or inflammatory enteritis. Ischemic etiology in the differential however the mesenteric vessels appear contrast opacified and patent. Recommend clinical correlation. Ill-defined hepatic lesions, many which are too small to characterize definitively however the appearance of the dominant mass is suspicious for hepatic metastases in the setting of reported pancreatic carcinoma. Mild circumferential bladder wall thickening, technically nonspecific. Please correlate clinically with urinalysis findings and if needed cystoscopy could be performed for further assessment. Bilateral renal cysts. Pneumobilia. Small pericardial effusion. Scattered mild ascites. Additional findings as above. Results were personally discussed by telephone with Dr. Mitchell in the emergency department 0730 hours 03/22/17. Dictated by: Rony Philippe M.D. on 03/22/2017 at 7:24 . 12-lead ECG 03/22/17 04:00 Sinus rhythm rate 76, machine QTC 565, but does not seem accurate to me, left axis deviation and no acute ST-T wave change, Q III, aVF Additional Diagnostics PROCEDURE: US VEINOUS LEG DUPLEX UNILATERAL, RIGHT FINDINGS: There is extensive occlusive clot throughout the right lower extremity extending from the common femoral vein and involving the right femoral vein, popliteal vein and posterior tibial vein. There is also occlusive clot seen within the peroneal vein. There is thrombus seen within the proximal greater saphenous vein. IMPRESSION: Extensive right lower extremity deep venous thrombosis. Additional clot seen within the proximal greater saphenous vein. Findings were provided to the patient's nurse Amy Jin RN at the time of the study 1245 hrs. on 03/23. Dictated by: Rony Philippe M.D. on 03/23/2017 at 14:06 . Assessment & Plan 76-year-old man with history of advanced pancreatic cancer and venous thromboembolic disease presents with acute onset abdominal pain. # Acute abdominal pain, present on admission. Pain out of proportion to physical exam findings. Imaging suggests small bowel inflammation or edema. Not typical site for primary bacterial infection. Suspect mesenteric venous thrombosis, possibly arterial occlusion but does not seem like acute ischemia. Now improving after 24 hours of bowel rest and observation. 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 Recent history of thrombosis associated with hematoma on anticoagulation. Now with new right leg DVT. Discussed risks benefits anticoagulants and patient endorses a return to anticoagulation. - Initiate therapeutic Lovenox 70 mg subcutaneous twice a day - The patient currently has an active prescription for therapeutic [facility] [place] [facility] , he can resume this at time of discharge - Physical therapy to assist with mobility # Diarrhea, acute. C. difficile and enteric pathogen panel negative. No recurrence during hospitalization. - Resolved # Hyperglycemia, acute. No known diabetes. Blood sugar monitoring 24 hours, all glucoses are WNL. - Resolved - Discontinue blood sugar checks # Acute kidney injury versus CKD. Serum creatinine on admission 1.2. This appears to be stable KD - Discontinue IV fluids and encourage by mouth intake # Non-anion gap metabolic acidosis. Bicarbonate 20 on admission, declined to 16. Possibly related to normal saline fluid resuscitation. - Repeat BMP # Goals of care. Counseled the patient and his extensively regarding the problem of recurrent thrombosis in the setting of incurable cancer. They currently wish to enhance functional mobility in order to move home to [place] and maintain maximum quality of life. They seemed interested in informational session with palliative care, which they may pursue when they return to [place]. - Palliative care consult Chronic or Stable but Actively Managed Problems: # Inoperable pancreatic Carcinoma - his oncologist is Zarina Hernandez in the [facility] system. I called but he is on vacation this week. The patient has a follow-up appointment on 03/31. # Coronary artery disease # BPH Disposition: Patient is admitted to inpatient status with the expects dictation of at least 48 hours of acute inpatient care for acute abdomen. Disposition: Anticipate that he can be discharged home on oral basal bolus pain regimen (MS Contin plus oral Dilaudid) with therapeutic Lovenox, as soon as he is tolerating a reasonable diet and is able to manage ambulation with his DVT leg pain. Likely 1-2 days. VTE Prophylaxis: Sub-Q Enoxaparin, SCDs Resuscitation Status: DNR/DNI:Do Not Resuscitate/Intubate Time spent 50 minutes Sorin Seth MD Mar 23, 2017 17:27
--- NOTE | 2017-03-23 19:19 | NUR ---
Transfer note- Received patient from [facility] via wheelchair to room 3030. Denies complaints at this time.
[2017-03-23] MEDS: Morphine ER 15 mg (MS Contin) Tablet PO SCH (20:45)
[2017-03-24] MEDS: Insulin Human REGular 300 Unit/3 mL Inj SUBQ SCH ×4 (02:30→20:30)
[2017-03-24 04:56] VITALS: BP 137/78; PULSE 88; RESP 16; O2SAT 97
[2017-03-24 05:42] VITALS: RESP 16; O2SAT 95
[2017-03-24] MEDS: Famotidine Inj 20 MG in IV Premix 1 EACH IV SCH ×2 (08:24→21:34)
[2017-03-24] MEDS: Morphine ER 15 mg (MS Contin) Tablet PO SCH ×2 (08:25→20:28)
--- NOTE | 2017-03-24 10:46 | NUR ---
Palliative Care Palliative Care received order from Dr Karly Seth 03/23/17 (late) to assist with goals of care. Patient lives at home with . Laura Arrieta () [phone] Ariafranck Arrieta (daughter) [phone] Palliative Care to follow. Kylee Jacobs
--- NOTE | 2017-03-24 12:39 | PCM.PNMED ---
Subjective Date of Service Mar 24, 2017 Subjective abdominal pain resolved. Continues to have right leg swelling Exam Vital Signs Vital Sign - Last Date Time Temp Pulse Resp B/P Pulse Ox O2 Delivery O2 Flow Rate FiO2 03/24/17 05:42 16 95 03/24/17 04:56 36.7 88 137/78 Room Air Intake and Output 03/23/17 03/23/17 03/24/17 Cumulative From/Thru 15:00 23:00 07:00 03/22/17 03:43 - 03/24/17 06:13 Intake Total 3968 ml 574 ml 8068 ml Output Total 200 ml 225 ml 1125 ml Balance 3768 ml 349 ml 6943 ml Intake Oral 560 ml 100 ml 660 ml IV Total 3408 ml 474 ml 7408 ml Output Urine Total 200 ml 225 ml 1125 ml # Voids 1 2 # Bowel Movements 0 0 Exam General: Pale elderly man in no acute distress HEENT: sclerae anicteric, oral mucosa moist Neck: no JVD Chest: clear to auscultation Cardiac: S1S2, regular, no murmur Abdomen: BS normal, mildly tender to palpate, no guarding, no rebound Extremities: Marked right leg edema, left leg normal Neuro: A&O, cranial nerves symmetric, motor strength 5/5, coordination normal IVs and Medications Medications Reviewed: Medications were reviewed in detail Lab and Diagnostics Result Diagram: 03/23/1730903/23/17 0310 X-Rays, CTs and MRIs PROCEDURE: CT ABDOMEN AND PELVIS WITH CONTRAST ([id number]) IMPRESSION: Extensive, long segment small bowel wall thickening with adjacent stranding and scattered fluid. Findings are nonspecific however probably reflect infectious or inflammatory enteritis. Ischemic etiology in the differential however the mesenteric vessels appear contrast opacified and patent. Recommend clinical correlation. Ill-defined hepatic lesions, many which are too small to characterize definitively however the appearance of the dominant mass is suspicious for hepatic metastases in the setting of reported pancreatic carcinoma. Mild circumferential bladder wall thickening, technically nonspecific. Please correlate clinically with urinalysis findings and if needed cystoscopy could be performed for further assessment. Bilateral renal cysts. Pneumobilia. Small pericardial effusion. Scattered mild ascites. Additional findings as above. Results were personally discussed by telephone with Dr. Mitchell in the emergency department 0730 hours 03/22/17. Dictated by: Rony Philippe M.D. on 03/22/2017 at 7:24 . 12-lead ECG 03/22/17 04:00 Sinus rhythm rate 76, machine QTC 565, but does not seem accurate to me, left axis deviation and no acute ST-T wave change, Q III, aVF Additional Diagnostics PROCEDURE: US VEINOUS LEG DUPLEX UNILATERAL, RIGHT FINDINGS: There is extensive occlusive clot throughout the right lower extremity extending from the common femoral vein and involving the right femoral vein, popliteal vein and posterior tibial vein. There is also occlusive clot seen within the peroneal vein. There is thrombus seen within the proximal greater saphenous vein. IMPRESSION: Extensive right lower extremity deep venous thrombosis. Additional clot seen within the proximal greater saphenous vein. Findings were provided to the patient's nurse Amy Jin RN at the time of the study 1245 hrs. on 03/23. Dictated by: Rony Philippe M.D. on 03/23/2017 at 14:06 . Assessment & Plan 76-year-old man with history of advanced pancreatic cancer and venous thromboembolic disease presents with acute onset abdominal pain. # Acute abdominal pain, present on admission. Pain out of proportion to physical exam findings. Imaging suggests small bowel inflammation or edema. Not typical site for primary bacterial infection. Suspect mesenteric venous thrombosis, arterial occlusion unlikely given normal CTA and normal lactate. -Pain resolved after 24 hours of bowel rest and observation. 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 Recent history of thrombosis associated with hematoma on anticoagulation. Now with new right leg DVT. Discussed risks benefits anticoagulants and patient endorses a return to anticoagulation. - Initiate therapeutic Lovenox 70 mg subcutaneous twice a day on 03/23. Tolerating well so far - The patient currently has an active prescription for therapeutic Lovenox dosing [facility] [place] [facility] [place] [facility] , he can resume this at time of discharge - Physical therapy to assist with mobility -IVC filter in place. Confirmed on abdominal CT # Diarrhea, acute. C. difficile and enteric pathogen panel negative. No recurrence during hospitalization. - Resolved # Hyperglycemia, acute. No known diabetes. Blood sugar monitoring 24 hours, all glucoses are WNL. - Resolved - Discontinue blood sugar checks # Acute kidney injury versus CKD. Serum creatinine on admission 1.2. This appears to be stable KD - Discontinue IV fluids and encourage by mouth intake # Non-anion gap metabolic acidosis. Bicarbonate 20 on admission, declined to 16. Possibly related to normal saline fluid resuscitation. - Repeat BMP # Goals of care. Counseled the patient and his extensively regarding the problem of recurrent thrombosis in the setting of incurable cancer. They currently wish to enhance functional mobility in order to move home to [place] and maintain maximum quality of life. They seemed interested in informational session with palliative care, which they may pursue when they return to [place]. - Palliative care consult Chronic or Stable but Actively Managed Problems: # Inoperable pancreatic Carcinoma - his oncologist is Zarina Hernandez in the [place] [facility]. I called but he is on vacation this week. The patient has a follow-up appointment on 03/31. # Coronary artery disease # BPH Disposition: Patient is admitted to inpatient status with the expects dictation of at least 48 hours of acute inpatient care for acute abdomen. Disposition: Anticipate that he can be discharged home on oral basal bolus pain regimen (MS Contin plus oral Dilaudid) with therapeutic Lovenox, as soon as he is tolerating a reasonable diet and is able to manage ambulation with his DVT leg pain. Likely 1-2 days. VTE Prophylaxis: Sub-Q Enoxaparin, SCDs Resuscitation Status: DNR/DNI:Do Not Resuscitate/Intubate Brown Escobar MD Mar 24, 2017 12:39
[2017-03-24 13:00] VITALS: RESP 16; O2SAT 95
--- NOTE | 2017-03-24 14:13 | PCM.CONPAL ---
Date of Service Mar 24, 2017 Date of Hospital Admission: Mar 22, 2017 at 08:50 Date of Palliative Consult: Mar 24, 2017 Requesting Provider: Sorin Seth MD Reason Palliative Care Consult: Pain Reason for Consultation Patient with pancreatic cancer and likely liver metastasis. Palliative consult for pain management. Patient is in [facility] room 3030. Hospital Unit @time of consult: Medical/Pediatric Care Palliative Care Recommendation Summary of palliative recommendations: Patient is a 76-year-old gentleman with advanced pancreatic cancer and venous thromboembolic disease who presented with acute onset abdominal pain likely secondary to mesenteric venous thrombosis, and right lower extremity DVT. Patient started on anticoagulation with Lovenox during this hospitalization. -Symptom management (Pain/other). 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 Will transition patient to an oral regimen in preparation for anticipated discharge in the coming days. Patient has close follow-up scheduled with his oncologist, Dr. Smith, on 04/02. Pain: 1. Increase oral morphine sulfate from 15mg twice daily to 30mg twice daily. 2. Increase oral hydromorphone 2mg every 4 hours PRN to hydromorphone 4-to- 8mg every 3 hours as needed for breakthrough pain. 3. Methadone was initially considered but given prolonged QTc on EKG, it is contraindicated. -DPOA/Advanced Directives/POLST 1. Patient is DNAR/DNI -Family/emotional support -Good family support. is Laura. Aria (daughter) lives in [place]. Patient and are planning to move to [place] in the next couple of weeks to be closer to their daughter. Additional Medical Diagnoses with primary management by Hospitalist team include : Acute abdominal pain, present on admission. Venous thromboembolic disease, acute and chronic. Diarrhea, acute. Hyperglycemia, acute. Acute kidney injury versus CKD. Non-anion gap metabolic acidosis. Inoperable pancreatic carcinoma. Coronary artery disease. BPH. Problems: Disposition Likely discharge home in next 1-2 days when medically stable Resuscitation Status Resuscitation Status: DNR/DNI:Do Not Resuscitate/Intubate POLST Updates/Changes Previous POLST?: No . Pain: Moderate Symptom management: Pain Pt History History of Present Illness Per admit note: The patient has had a complicated recent past medical history. He has stage IV pancreatic carcinoma and last received chemotherapy in February 2017. He had thromboembolic disease and was treated with therapeutic Lovenox. He was admitted to [facility] in February 2017 with ascending cholangitis. After discharge from this episode he was admitted to [facility] in early March 2017 with acute left leg pain attributed to both thrombosis and thigh hematoma. Due to this bleeding complication his Lovenox, Plavix and aspirin were discontinued. He was transferred to the [facility] for placement of an IVC filter. He was discharged from [facility] on 03/17. 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 He was ambulatory and in good general functional status. He went to bed on the night of admission and was reading in bed when at 2 in the morning he experienced sudden onset mid lower abdominal pain. The pain was constant in character. This located centrally in the lower abdomen. There is no radiation. This was associated with several bouts of diarrhea, and mild nausea. There was associated with presyncopal sensation when he ambulated to the bathroom. He experienced a nontraumatic fall due to presyncope. There is no effective change in position. No palliating or exacerbating factors. He feels he has had mild discomfort like this in the past, but not like the current complaint. He denies dysuria. He has had nephrolithiasis in the past which was a different sensation. He has no known bladder pathology. He has BPH. Palliative Care consulted to assist with pain management. Rounded on patient with Dr. James. Records in EMR reviewed in detail and patient was discussed with bedside nurse. Patient is seen sitting upright in bed and appears comfortable. His , Laura, is present at bedside at the time of visit. Patient reports pain in his left leg that he rates a 4 to 5 out of 10 on the analog pain scale. He reports the pain in his right leg is negligible. Patient reports having liquid morphine at home that he uses for pain as needed but does not take anything for pain regularly. Patient states that he and his are planning to move back to [place] in a couple of weeks to be closer to their daughter. He previously lived in [place] before moving to [facility]. 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 He reports being fairly functional at baseline despite chemotherapy, only requiring crutches on long outings. He is followed by oncologist, Dr. Smith, who he is scheduled to see next week on 04/02. Patient says he will establish care with an oncologist at the [facility] after his move. 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 Allergy Allergies Reviewed: Yes Medications Current Medications: Current Medications Ceftriaxone Sodium 2000 mg/ Dextrose/Water 50 ml @ 100 mls/hr Q24H IV Last administered on 03/23/17 12:10; Admin Dose 100 MLS/HR; Start 03/22/17 at 11:20 ; Stop 03/23/17 at 17:16; Status DC Metronidazole/ Sodium Chloride 1000 mg/Premix 200 ml @ 200 mls/hr Q12 IV Last administered on 03/23/17 10:59; Admin Dose 200 MLS/HR; Start 03/22/17 at 20:30 ; Stop 03/23/17 at 17:16; Status DC Dextrose/Water 500 ml @ 10 mls/hr Q24H IV; Start 03/22/17 at 11:57; Stop at 10:06; Status DC Hydromorphone HCl Dose Range: 0.5 mg to 1 mg Q1H PRN IVPUSH; Start 03/22/17 at 12:00; Stop 03/23/17 at 17:39; Status DC Naloxone HCl 0.04 mg 0.04 mg Q1MIN PRN IVPUSH; Start 03/22/17 at 12:00; Stop at 10:06; Status DC Sodium Chloride 250 ml @ 10 mls/hr Q24H IV; Start 03/22/17 at 15:46 Insulin Human Regular * Medium Dose Insu... Q6 SUBQ; Start 03/22/17 at 20:30 Metoprolol Tartrate 12.5 mg MORNING PO Last administered on 03/24/17 08:25; Admin Dose 12.5 MG; Start 03/23/17 at 08:30 Tamsulosin HCl 0.4 mg MORNING PO Last administered on 03/24/17 08:25; Admin Dose 0.4 MG; Start 03/23/17 at 08:30 Morphine Sulfate 15 mg BID PO Last administered on 03/24/17 08:25; Admin Dose 15 MG; Start 03/23/17 at 20:30; Stop 03/24/17 at 11:10; Status DC Hydromorphone HCl 2 mg Q4H PRN PO; Start 03/24/17 at 07:00; Stop 03/24/17 at 11 :10; Status DC Enoxaparin Sodium 70 mg Q12 SUBQ Last administered on 03/24/17 08:32; Admin Dose 70 MG; Start 03/23/17 at 20:30 Morphine Sulfate 30 mg BID PO; Start 03/24/17 at 20:30; Status UNV Hydromorphone HCl 4mg to 8mg every 3 hours... Q3 PRN PO; Start 03/24/17 at 11: 00; Status UNV Scheduled Atorvastatin Calcium (Atorvastatin Calcium) 40 Mg Tablet 40 MG PO HS Docusate Sodium (Colace) 100 Mg Capsule 200 MG PO DAILY Finasteride (Finasteride) 5 Mg Tablet 5 MG PO DAILY Lansoprazole (Lansoprazole) 30 Mg Capsule.dr 30 MG PO DAILY Lisinopril (Lisinopril) 5 Mg Tablet 5 MG PO DAILY Magnesium Oxide (Magnesium Oxide) 400 Mg Tablet 400 MG PO DAILY Metoprolol Tartrate (Metoprolol Tartrate) 25 Mg Tablet 12.5 MG PO MORNING Tamsulosin (Flomax) 0.4 Mg Capsule 0.4 MG PO MORNING Vit C/E/Zn/Coppr/Lutein/Zeaxan (Preservision Areds 2 Softgel) 1 Each Capsule 1 EACH PO DAILY Scheduled PRN Hydromorphone (Hydromorphone) 2 Mg Tablet 2-4 MG PO q4 hours PRN PRN Pain Ondansetron (Ondansetron) 4 Mg Tablet 4 MG PO q8 hours PRN PRN For Nausea Objective Findings Exam Vital Sign - Last Date Time Temp Pulse Resp B/P Pulse Ox O2 Delivery O2 Flow Rate FiO2 03/24/17 05:42 16 95 03/24/17 04:56 36.7 88 137/78 Room Air Intake and Output 03/23/17 03/23/17 03/24/17 Cumulative From/Thru 15:00 23:00 07:00 03/22/17 03:43 - 03/24/17 06:13 Intake Total 3968 ml 574 ml 8068 ml Output Total 200 ml 225 ml 1125 ml Balance 3768 ml 349 ml 6943 ml Intake Oral 560 ml 100 ml 660 ml IV Total 3408 ml 474 ml 7408 ml Output Urine Total 200 ml 225 ml 1125 ml # Voids 1 2 # Bowel Movements 0 0 Objective Elderly gentleman sitting upright in bed. No acute distress. Appears comfortable. General: Alert/Oriented x3, No acute distress HEENT: Atraumatic, EOMI Heart: Exam Unremarkable Lungs: Crackles (Few crackles at right base) Abdomen: Bowel Tones x4, Tenderness to Palpation (Mild tenderness in lower abdomen) Neuro: Other (Grossly intact) Extremities: Warm, Edema (Right lower extremity with non-pitting edema) Lab/Diagnostics Lab and Imaging results reviewed in detail in EMR. Time spent Total time 70 minutes; >50% face to face with patient and/or family, providing counselling regarding plans and recommendations, and in care coordination with his/her medical teams. Attending Statement Dr. James (Attending) was physically present and available to Dr. Ruiz throughout this pt interaction and we discussed management recommendations together. I agree with documentation written by Dr. Ruiz above. Harsh Ruiz DO Mar 24, 2017 11:13 Krystle James MD Mar 24, 2017 14:26
[2017-03-24] MEDS: 0.9% Sodium Chloride 250 ML IV SCH (15:26)
--- NOTE | 2017-03-24 15:51 | NUR ---
Pain medications / dosing [facility] [employer] hydromorphone discontinued per MD order. Patient transitioned to scheduled oral and PRN pain medications. Dose range for PO hydromorphone is 4-8mg Q 3 hours. Initial PO dose of 4mg was not totally effective in providing relief of leg pain so additional 4mg was given 90 minutes after first dose. Patient now reports leg pain at 2/10. Bed low and locked, call light in reach, care and frequent rounding ongoing.
[2017-03-24 21:05] VITALS: BP 160/84; PULSE 100; RESP 16; O2SAT 98
[2017-03-25] MEDS: Insulin Human REGular 300 Unit/3 mL Inj SUBQ SCH ×2 (02:30→08:21)
[2017-03-25 05:22] VITALS: BP 143/66; PULSE 70; RESP 16; O2SAT 94
--- NOTE | 2017-03-25 05:38 | NUR ---
Pain Pt reports pain 3/10 to right leg. Medicated pt with HS dose of MS contin. Pt stating pain decreased to 1/10 after medication admin. Pt sleeping through the night. Pt stating pain "not that bad, was able to sleep" when pt awoke this AM. Call light within reach, frequent rounding.
[2017-03-25] MEDS: Famotidine Inj 20 MG in IV Premix 1 EACH IV SCH ×2 (08:18→20:05)
[2017-03-25] MEDS: Morphine ER 15 mg (MS Contin) Tablet PO SCH ×2 (08:19→20:05)
[2017-03-25 09:58] LABS: BASOPHILS % (AUTO) 0.2 % (0-3); EOSINOPHILS % (AUTO) 1.2 % (0-5); MONOCYTES % (AUTO) 9.7 % (4-12); Mean Corpuscular Hemoglobin 25.8 pg (27.0-35.0); Mean Corpuscular Volume 84.5 fL (81-100); NEUTROPHILS % (AUTO) 81.9 % (40-74); Platelet Count 266 bil/L (150-400)
--- NOTE | 2017-03-25 10:51 | NUR ---
Social Work: Readiness for Discharge D: EMR reviewed. Pt is on day 3 of hospitalization. Per MD in AM multi-disciplinary rounds, pt will start blood thinners today and MD will hold overnight to watch pt's progress with blood thinners. Pt is likely to discharge tomorrow pending progress with blood thinners today. Pt states that spouse will provide transport via POV when pt is medically stable. SW does not anticipate any discharge needs at this time but will continue to follow if needs arise. A: Pt who is independent and has pancreatic cancer at baseline. P: Pt states that spouse will provide transport via POV when pt is medically stable. SW does not anticipate any discharge needs at this time but will continue to follow if needs arise. KALEE Blanca
--- NOTE | 2017-03-25 12:35 | NUR ---
SANTO Signed @ noon
[2017-03-25 13:09] VITALS: BP 147/80; PULSE 87; RESP 16; O2SAT 99
--- NOTE | 2017-03-25 13:31 | NUR ---
Evaluation completed. Please go to "Notes" then click on "Assessments and Notes" (bottom left corner of screen). Then select appropriate discipline tab on top of screen.
--- NOTE | 2017-03-25 14:41 | NUR ---
Care Care transferred to Stephanie Ortiz RN at this time. Addendum: 03/25/17 at 1455 by STEPHANIE ALTMAN RN Assumed care of pt at this time. Report given by Nahomy Sheppard. Pt is resting quietly, reports is comfortable at this time. Call light in reach, will continue to monitor.
--- NOTE | 2017-03-25 15:07 | PCM.PNMED ---
Subjective Date of Service Mar 25, 2017 Subjective Continues to have right lower extremity pain and swelling. No dyspnea. Afebrile. Hemoglobin remains stable. No evidence of bleeding complication Exam Vital Signs Vital Sign - Last Date Time Temp Pulse Resp B/P Pulse Ox O2 Delivery O2 Flow Rate FiO2 03/25/17 13:09 36.7 87 16 147/80 99 Room Air Intake and Output 03/24/17 03/24/17 03/25/17 Cumulative From/Thru 15:00 23:00 07:00 03/22/17 03:43 - 03/25/17 06:20 Intake Total 800 ml 300 ml 9168 ml Output Total 150 ml 950 ml 2225 ml Balance 650 ml -650 ml 6943 ml Intake Oral 800 ml 300 ml 1760 ml IV Total 7408 ml Output Urine Total 150 ml 950 ml 2225 ml # Voids 1 3 # Bowel Movements 0 0 Exam General: Pale elderly man in no acute distress HEENT: sclerae anicteric, oral mucosa moist Neck: no JVD Chest: clear to auscultation Cardiac: S1S2, regular, no murmur Abdomen: BS normal, mildly tender to palpate, no guarding, no rebound Extremities: Marked right leg edema, left leg normal Neuro: A&O, cranial nerves symmetric, motor strength 5/5, coordination normal IVs and Medications Medications Reviewed: Medications were reviewed in detail Lab and Diagnostics Result Diagram: 03/25/17 0950 03/25/17 0950 X-Rays, CTs and MRIs PROCEDURE: CT ABDOMEN AND PELVIS WITH CONTRAST ([id number]) IMPRESSION: Extensive, long segment small bowel wall thickening with adjacent stranding and scattered fluid. Findings are nonspecific however probably reflect infectious or inflammatory enteritis. Ischemic etiology in the differential however the mesenteric vessels appear contrast opacified and patent. Recommend clinical correlation. Ill-defined hepatic lesions, many which are too small to characterize definitively however the appearance of the dominant mass is suspicious for hepatic metastases in the setting of reported pancreatic carcinoma. Mild circumferential bladder wall thickening, technically nonspecific. Please correlate clinically with urinalysis findings and if needed cystoscopy could be performed for further assessment. Bilateral renal cysts. Pneumobilia. Small pericardial effusion. Scattered mild ascites. Additional findings as above. Results were personally discussed by telephone with Dr. Mitchell in the emergency department 0730 hours 03/22/17. Dictated by: Rony Philippe M.D. on 03/22/2017 at 7:24 . 12-lead ECG 03/22/17 04:00 Sinus rhythm rate 76, machine QTC 565, but does not seem accurate to me, left axis deviation and no acute ST-T wave change, Q III, aVF Additional Diagnostics PROCEDURE: US VEINOUS LEG DUPLEX UNILATERAL, RIGHT FINDINGS: There is extensive occlusive clot throughout the right lower extremity extending from the common femoral vein and involving the right femoral vein, popliteal vein and posterior tibial vein. There is also occlusive clot seen within the peroneal vein. There is thrombus seen within the proximal greater saphenous vein. IMPRESSION: Extensive right lower extremity deep venous thrombosis. Additional clot seen within the proximal greater saphenous vein. Findings were provided to the patient's nurse Amy Jin RN at the time of the study 1245 hrs. on 03/23. Dictated by: Rony Philippe M.D. on 03/23/2017 at 14:06 . Assessment & Plan 76-year-old man with history of advanced pancreatic cancer and venous thromboembolic disease presents with acute onset abdominal pain. 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 Pain out of proportion to physical exam findings. Imaging suggests small bowel inflammation or edema. Not typical site for primary bacterial infection. Suspect mesenteric venous thrombosis, arterial occlusion unlikely given normal CTA and normal lactate. -Pain resolved after 24 hours of bowel rest and observation. - Advance diet to full liquids - Discontinue IV fluids and encourage by mouth hydration - Palliative managing pain regimen. Currently on morphine sulfate 30 mg by mouth daily and Dilaudid 4-8 mg q3h for breakthrough - Discontinue ceftriaxone plus metronidazole - Appreciate Surgical consult, but no apparent surgical indication # Venous thromboembolic disease, acute and chronic. Recent history of thrombosis associated with hematoma on anticoagulation. Now with new right leg DVT. Discussed risks benefits anticoagulants and patient endorses a return to anticoagulation. - Initiate therapeutic Lovenox 70 mg subcutaneous twice a day on 03/23. Tolerating well so far - The patient currently has an active prescription for therapeutic Lovenox dosing at [facility] and , he can resume this at time of discharge - Physical therapy to assist with mobility -IVC filter in place. Confirmed on abdominal CT # Diarrhea, acute. C. difficile and enteric pathogen panel negative. No recurrence during hospitalization. - Resolved # Hyperglycemia, acute. No known diabetes. Blood sugar monitoring 24 hours, all glucoses are WNL. - Resolved - Discontinue blood sugar checks # Acute kidney injury versus CKD. Serum creatinine on admission 1.2. This appears to be stable KD - Discontinue IV fluids and encourage by mouth intake # Non-anion gap metabolic acidosis. Bicarbonate 20 on admission, declined to 16. Possibly related to normal saline fluid resuscitation. - Repeat BMP # Goals of care. Counseled the patient and his extensively regarding the problem of recurrent thrombosis in the setting of incurable cancer. They currently wish to enhance functional mobility in order to move home to [place] and maintain maximum quality of life. They seemed interested in informational session with palliative care, which they may pursue when they return to [place]. - Palliative care consult Chronic or Stable but Actively Managed Problems: # Inoperable pancreatic Carcinoma - his oncologist is Zarina Hernandez in the [facility] system. I called but he is on vacation this week. The patient has a follow-up appointment on 03/31. # Coronary artery disease # BPH Disposition: Patient is admitted to inpatient status with the expects dictation of at least 48 hours of acute inpatient care for acute abdomen. Disposition: Anticipate that he can be discharged home on oral basal bolus pain regimen (MS Contin plus oral Dilaudid) with therapeutic Lovenox, patient had significant bleeding complication last time he was on Lovenox. Monitor for complication for 1 more day. PT eval today. Likely tomorrow VTE Prophylaxis: Sub-Q Enoxaparin, SCDs Resuscitation Status: DNR/DNI:Do Not Resuscitate/Intubate Brown Escobar MD Mar 25, 2017 15:07
--- NOTE | 2017-03-25 15:26 | PCM.PALLBR ---
Palliative Care Recommendation Summary of palliative recommendations: Patient is a 76-year-old gentleman with advanced pancreatic cancer and venous thromboembolic disease who presented with acute onset abdominal pain likely secondary to mesenteric venous thrombosis, and right lower extremity DVT. Patient started on anticoagulation with Lovenox during this hospitalization. -Symptom management (Pain/other). Pain: 1. Continue oral morphine sulfate 30mg twice daily. 2. Continue oral hydromorphone 4-to-8mg every 3 hours as needed for breakthrough pain. 3. Methadone was initially considered but given prolonged QTc on EKG, it is contraindicated. -DPOA/Advanced Directives/POLST 1. Patient is DNAR/DNI -Family/emotional support -Good family support. is Laura. Aria (daughter) lives in [place]. Patient and are planning to move to [place] in the next couple of weeks to be closer to their daughter (see below for details) Additional Medical Diagnoses with primary management by Hospitalist team include : Acute abdominal pain, present on admission. Venous thromboembolic disease, acute and chronic. Diarrhea, acute. Hyperglycemia, acute. Acute kidney injury versus CKD. Non-anion gap metabolic acidosis. Inoperable pancreatic carcinoma. Coronary artery disease. BPH. Problems: End of Life Preferences DO NOT RESUSCITATE/DO NOT INTUBATE Disposition Likely discharge to home of friends in [place] in next 1-2 days when medically stable Resuscitation Status Resuscitation Status: DNR/DNI:Do Not Resuscitate/Intubate POLST Updates/Changes Previous POLST?: No . Pain: Mild Symptom management: Pain Total time 25 minutes; >50% face to face with patient and family, providing counselling regarding plans and recommendations, and in care coordination with his medical teams. Palliative Brief Note Date of Service Mar 25, 2017 . Returned to reevaluate patient. Prior to visiting, reviewed his updated records in the EMR in detail and spoke with his bedside nurse. When I arrived, he is lying in bed with his at bedside. Oriented and appropriate. Noted some right thigh discomfort after ambulating which is improved after receiving his prn pain medication. Denied other distressing symptoms. Discussed possibly increasing his scheduled morphine ER but he was uninterested. He notes that their plan is to go to [place] to stay with some friends after discharge. In 2-3 weeks his daughter will fly out from [place] and escort them back (by plane) and they will then move in with her for the time being. On exam, vital signs noted. His exam was stable compared with yesterday's. Labs and imaging studies reviewed. Magno Titus MD Mar 25, 2017 15:26
[2017-03-25] MEDS: 0.9% Sodium Chloride 250 ML IV SCH (16:06)
--- NOTE | 2017-03-25 18:00 | NUR ---
Nausea Pt c/o nausea at approx 1730, requesting medication. 4 mg IV Zofran administered. Pt reports nausea resolved. Call light in place, will continue to monitor.
[2017-03-25 20:08] VITALS: BP 124/78; PULSE 93; RESP 16; O2SAT 98
[2017-03-26 05:50] VITALS: BP 136/82; RESP 16; O2SAT 98
[2017-03-26 05:54] VITALS: BP 135/76; PULSE 93; RESP 16
[2017-03-26] MEDS: Famotidine Inj 20 MG in IV Premix 1 EACH IV SCH (09:05)
[2017-03-26] MEDS: Morphine ER 15 mg (MS Contin) Tablet PO SCH (09:06)
--- NOTE | 2017-03-26 10:14 | PCM.DIMED ---
Discharge Instructions Date of Service Mar 26, 2017 Dates of Hospitalization Mar 22, 2017 at 08:50 Discharge Diagnosis Discharge Diagnosis # Acute abdominal pain due to suspected mesenteric venous thrombosis , present on admission. Thromboses probably caused by pancreatic cancer. 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 # Diarrhea, acute. C. difficile and enteric pathogen panel negative. # Acute kidney injury versus CKD. # Non-anion gap metabolic acidosis. Resolved # Inoperable pancreatic Carcinoma - his oncologist is Zarina Smith in the [facility] system. The patient has a follow-up appointment on 03/31. # Coronary artery disease # BPH Diet Discharge Diet: No restrictions Activity Discharge Activity: Limited until seen by PCP Call your provider Call your provider for: Fever or Chills, Shortness of breath, Bleeding, Chest pain, Vomitting, Excessive diarrhea, Weakness (unilateral) Patient Instructions Patient Instructions You were hospitalized due to abdominal pain. The pain seems to be due to mesenteric venous thrombosis. Pain is resolved. Please continue Lovenox as prescribed. Please follow-up with her oncologist next week as scheduled. Follow-up Provider: [facility] Follow-up with PCP in: 2 weeks Follow-up in: 1 week (Dr Zarina Smith next week ) Brown Escobar MD Mar 26, 2017 10:14
[2017-03-26] MEDS ORDERED: MORP-32 PO (10:15)
[2017-03-26] MEDS ORDERED: LOV80 SUBQ (10:15)
[2017-03-26] MEDS ORDERED: HYDR2TAB28 PO (10:15)
--- NOTE | 2017-03-26 10:17 | NUR ---
Social Work: Discharge Data: Pt is on day 4 of hospitalization. EMR reviewed. D/C orders are in. Pt discussed in rounds. No d/c planning needs at this time. FULFILLMENT REPRESENTATIVE will continue to follow if needs arise. Assessment: Pt who is independent at baseline. Plan: Pt will d/c home via POV today. No d/c planning needs at this time. FULFILLMENT REPRESENTATIVE will continue to follow if needs arise. KALEE Mullen
--- NOTE | 2017-03-26 10:32 | PCM.DC.MED ---
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 Thromboses probably caused by pancreatic cancer. 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 # Diarrhea, acute. C. difficile and enteric pathogen panel negative. # Acute kidney injury versus CKD. # Non-anion gap metabolic acidosis. Resolved # Inoperable pancreatic Carcinoma - his oncologist is Zarina Smith in the [facility] system. The patient has a follow-up appointment on 03/31. # Coronary artery disease # BPH Consultations Surgery Procedures XRay, CTs & MRIs PROCEDURE: CT ABDOMEN AND PELVIS WITH CONTRAST ([id number]) IMPRESSION: Extensive, long segment small bowel wall thickening with adjacent stranding and scattered fluid. Findings are nonspecific however probably reflect infectious or inflammatory enteritis. Ischemic etiology in the differential however the mesenteric vessels appear contrast opacified and patent. Recommend clinical correlation. Ill-defined hepatic lesions, many which are too small to characterize definitively however the appearance of the dominant mass is suspicious for hepatic metastases in the setting of reported pancreatic carcinoma. Mild circumferential bladder wall thickening, technically nonspecific. Please correlate clinically with urinalysis findings and if needed cystoscopy could be performed for further assessment. Bilateral renal cysts. Pneumobilia. Small pericardial effusion. Scattered mild ascites. Additional findings as above. Results were personally discussed by telephone with Dr. Mitchell in the emergency department 0730 hours 03/22/17. Dictated by: Rony Philippe M.D. on 03/22/2017 at 7:24 . ECG 12 Lead 03/22/17 04:00 Sinus rhythm rate 76, machine QTC 565, but does not seem accurate to me, left axis deviation and no acute ST-T wave change, Q III, aVF Other Diagnostics PROCEDURE: US VEINOUS LEG DUPLEX UNILATERAL, RIGHT FINDINGS: There is extensive occlusive clot throughout the right lower extremity extending from the common femoral vein and involving the right femoral vein, popliteal vein and posterior tibial vein. There is also occlusive clot seen within the peroneal vein. There is thrombus seen within the proximal greater saphenous vein. IMPRESSION: Extensive right lower extremity deep venous thrombosis. Additional clot seen within the proximal greater saphenous vein. Findings were provided to the patient's nurse Amy Jin RN at the time of the study 1245 hrs. on 03/23. Dictated by: Rony Philippe M.D. on 03/23/2017 at 14:06 . Brief History Per admit note and palliative note The patient has had a complicated recent past medical history. He has stage IV pancreatic carcinoma and last received chemotherapy in February 2017. He had thromboembolic disease and was treated with therapeutic Lovenox. He was admitted to [facility] in February 2017 with ascending cholangitis. After discharge from this episode he was admitted to [facility] in early March 2017 with acute left leg pain attributed to both thrombosis and thigh hematoma. Due to this bleeding complication his Lovenox, Plavix and aspirin were discontinued. He was transferred to the [facility] for placement of an IVC filter. He was discharged from [facility] on 03/17. 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 He was ambulatory and in good general functional status. He went to bed on the night of admission and was reading in bed when at 2 in the morning he experienced sudden onset mid lower abdominal pain. The pain was constant in character. This located centrally in the lower abdomen. There is no radiation. This was associated with several bouts of diarrhea, and mild nausea. There was associated with presyncopal sensation when he ambulated to the bathroom. He experienced a nontraumatic fall due to presyncope. There is no effective change in position. No palliating or exacerbating factors. He feels he has had mild discomfort like this in the past, but not like the current complaint. He denies dysuria. He has had nephrolithiasis in the past which was a different sensation. He has no known bladder pathology. He has BPH. Palliative Care consulted to assist with pain management. Rounded on patient with Dr. James. Records in EMR reviewed in detail and patient was discussed with bedside nurse. Patient is seen sitting upright in bed and appears comfortable. His , Laura, is present at bedside at the time of visit. Patient reports pain in his left leg that he rates a 4 to 5 out of 10 on the analog pain scale. He reports the pain in his right leg is negligible. Patient reports having liquid morphine at home that he uses for pain as needed but does not take anything for pain regularly. Patient states that he and his are planning to move back to [place] in a couple of weeks to be closer to their daughter. He previously lived in [place] before moving to [facility]. 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 He reports being fairly functional at baseline despite chemotherapy, only requiring crutches on long outings. He is followed by oncologist, Dr. Smith, who he is scheduled to see next week on 04/02. Patient says he will establish care with an oncologist at the [facility] after his move. Hospital Course 76-year-old man with history of advanced pancreatic cancer and venous thromboembolic disease presents with acute onset abdominal pain. 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 Imaging suggests small bowel inflammation or edema. Not typical site for primary bacterial infection. Suspect mesenteric venous thrombosis, arterial occlusion unlikely given normal CTA and normal lactate. -Pain resolved after 24 hours of bowel rest and observation. - Advanced diet - Palliative managing pain regimen. Currently on morphine sulfate 30 mg by mouth daily and Dilaudid 4-8 mg q3h for breakthrough - Discontinued ceftriaxone plus metronidazole - Appreciate Surgical consult, but no apparent surgical indication -Discharged on Lovenox 70 mg subcutaneous twice a day monitored patient for 48 hours for bleeding complication. No hematoma or bleeding. Hemoglobin remained stable.. # Venous thromboembolic disease, acute and chronic. Recent history of thrombosis associated with hematoma on anticoagulation. Now with new right leg DVT. Discussed risks benefits anticoagulants and patient endorses a return to anticoagulation. - Initiate therapeutic Lovenox 70 mg subcutaneous twice a day on 03/23. Tolerating well so far - The patient currently has an active prescription for therapeutic [facility] and , he can resume this at time of discharge -IVC filter in place. Confirmed on abdominal CT # Diarrhea, acute. C. difficile and enteric pathogen panel negative. No recurrence during hospitalization. - Resolved # Hyperglycemia, acute. No known diabetes. Blood sugar monitoring 24 hours, all glucoses are WNL. - Resolved - Discontinue blood sugar checks # Acute kidney injury versus CKD. Serum creatinine on admission 1.2. This appears to be stable KD - Discontinue IV fluids and encourage by mouth intake # Non-anion gap metabolic acidosis. Bicarbonate 20 on admission, declined to 16. Possibly related to normal saline fluid resuscitation. - Repeat BMP # Goals of care. Counseled the patient and his extensively regarding the problem of recurrent thrombosis in the setting of incurable cancer. They currently wish to enhance functional mobility in order to move home to [place] and maintain maximum quality of life. They seemed interested in informational session with palliative care, which they may pursue when they return to [place]. - Palliative care consult Chronic or Stable but Actively Managed Problems: # Inoperable pancreatic Carcinoma - his oncologist is Zarina Smith in the [facility] system. I called but he is on vacation this week. The patient has a follow-up appointment on next Wednesday # Coronary artery disease # BPH Disposition: Discharge home. Patient going to stay with friends in [place] Exam Vital Signs (Last) Date Time Temp Pulse Resp B/P Pulse Ox O2 Delivery O2 Flow Rate FiO2 03/26/17 05:54 36.6 93 16 135/76 Room Air 03/26/17 05:50 98 Exam General: Pale elderly man in no acute distress HEENT: sclerae anicteric, oral mucosa moist Neck: no JVD Chest: clear to auscultation Cardiac: S1S2, regular, no murmur Abdomen: BS normal, mildly tender to palpate, no guarding, no rebound Extremities: Marked right thigh swelling but improving, left leg normal Neuro: A&O, cranial nerves symmetric, motor strength 5/5, coordination normal Test 03/22/17 03:45 03/22/17 07:30 03/22/17 08:08 03/22/17 12:09 Prothrombin Time 12.7sec (8.1-12.5) Prothromb Time International Ratio 1.18ratio Lactate Dehydrogenase 382U/L (100-190) Troponin T 0.024ug/L (0.0-0.011) Lipase 16U/L (13-60) Lactic Acid Level 1.1mmol/L (0.4-2.0) Urine Color Yellow (YELLOW) Urine Appearance Clear (CLEAR,HAZY) Urine pH 6.5 (5.0-8.0) Urine Specific [place] 1.005 (1.003-1.035) Urine Protein Negativemg/dL (NEG,TRACE) Urine Glucose (UA) Negativemg/dL (NEGATIVE) Urine Ketones Negativemg/dL (NEGATIVE) Urine Occult Blood Negative (NEGATIVE) Urine Nitrite Negative (NEGATIVE) Urine Bilirubin Negative (NEGATIVE) Urine Urobilinogen Normalmg/dL (NORMAL) Urine Leukocyte Esterase Negative (NEGATIVE) Urine RBC 0-2/hpf (0-2) Urine WBC 0-5/hpf (0-5) Urine Epithelial Cells Occasional/hpf (NONE-MOD) Urine Crystals None seen (NONE SEEN) Urine Bacteria Few/hpf (NONE-FEW) Urine Hyaline Casts Occasional/lpf (NONE) Urine Granular Casts Occasional (NONE SEEN) Urine Waxy Casts None seen (NONE SEEN) Urine Red Blood Cell Casts None seen (NONE SEEN) Urine White Blood Cell Casts None seen (NONE SEEN) Urine Mucus Present (None Seen) Urine Trichomonas None seen (NONE SEEN) Urine Yeast None (NONE SEEN) Urinalysis Comment None Urine Culture Reflexed Not indicated Hold Urine Received (Received) Test 03/25/17 09:50 White Blood Count 9.3th/mm3 (3.8-10.1) Red Blood Count 3.61mil/mm3 (4.40-5.80) Hemoglobin 9.3g/dL (13.8-17.2) Hematocrit 30.5% (41.0-50.0) Mean Corpuscular Volume 84.5fL (81-100) Mean Corpuscular Hemoglobin 25.8pg (27.0-35.0) Mean Corpuscular Hemoglobin Concent 30.5% (32.0-37.0) Red Cell Distribution Width 15.7% (12.3-15.4) Platelet Count 266bil/L (150-400) Neutrophils (%) (Auto) 81.9% (40-74) Lymphocytes (%) (Auto) 6.6% (14-46) Monocytes (%) (Auto) 9.7% (4-12) Eosinophils (%) (Auto) 1.2% (0-5) Basophils (%) (Auto) 0.2% (0-3) Sodium Level 136mEq/L (134-144) Potassium Level 4.2mEq/L (3.5-5.2) Chloride Level 103mEq/L (97-108) Carbon Dioxide Level 19mmol/L (18-29) Blood Urea Nitrogen 6mg/dL (8-27) Creatinine 0.63mg/dL (0.76-1.27) Estimat Glomerular Filtration Rate 132mL/min (>59) Glucose Level 185mg/dL (60-99) Calcium Level 8.7mg/dL (8.5-10.1) Magnesium Level 2.0mg/dL (1.6-2.6) Total Bilirubin 0.7mg/dL (0.0-1.2) Aspartate Amino Transf (AST/SGOT) 19U/L (0-50) Alanine Aminotransferase (ALT/SGPT) 11U/L (0-44) Alkaline Phosphatase 139U/L (25-160) Total Protein 5.3g/dL (6.4-8.4) Albumin 3.1g/dL (3.4-5.0) Procalcitonin 0.15ng/mL (0.00-0.08) Discharge Medications Discharge Medications Atorvastatin Calcium (Atorvastatin Calcium) 40 Mg Tablet 40 MG PO HS Prescribed by: NEREIDA VILLEDA MD Docusate Sodium (Colace) 100 Mg Capsule 200 MG PO DAILY (Reported) Enoxaparin (Lovenox) 80 Mg/0.8 Ml Syringe 70 MG SUBQ Q12 Prescribed by: BROWN ESCOBAR MD Finasteride (Finasteride) 5 Mg Tablet 5 MG PO DAILY (Reported) Lansoprazole (Lansoprazole) 30 Mg Capsule.dr 30 MG PO DAILY (Reported) Lisinopril (Lisinopril) 5 Mg Tablet 5 MG PO DAILY (Reported) Magnesium Oxide (Magnesium Oxide) 400 Mg Tablet 400 MG PO DAILY (Reported) Metoprolol Tartrate (Metoprolol Tartrate) 25 Mg Tablet 12.5 MG PO MORNING ( Reported) Morphine Sulfate ER (Morphine Sulfate ER) 15 Mg Tablet 30 MG PO BID Prescribed by: BROWN ESCOBAR MD Tamsulosin (Flomax) 0.4 Mg Capsule 0.4 MG PO MORNING (Reported) Vit C/E/Zn/Coppr/Lutein/Zeaxan (Preservision Areds 2 Softgel) 1 Each Capsule 1 EACH PO DAILY (Reported) As needed Hydromorphone (Hydromorphone) 2 Mg Tablet 4-8 MG PO q4 hours PRN PRN Pain Prescribed by: BROWN ESCOBAR MD Ondansetron (Ondansetron) 4 Mg Tablet 4 MG PO q8 hours PRN PRN For Nausea ( Reported) Followup Plan Disposition: Home Discharge Diet: No restrictions Discharge Activity: Limited until seen by PCP Patient Instructions You were hospitalized due to abdominal pain. The pain seems to be due to mesenteric venous thrombosis. Pain is resolved. Please continue Lovenox as prescribed. Please follow-up with her oncologist next week as scheduled. Follow-up Provider: [facility] Follow-up with PCP in: 2 weeks Follow-up in: 1 week (Dr Zarina Smith next week ) Time spent 35 minutes copies to: Dr Zarina Smith in [facility] ,oncology ; [facility] Brown Escobar MD Mar 26, 2017 10:32
--- NOTE | 2017-03-26 13:40 | PCM.PALLBR ---
Palliative Care Recommendation Summary of palliative recommendations: Patient is a 76-year-old gentleman with advanced pancreatic cancer and venous thromboembolic disease who presented with acute onset abdominal pain likely secondary to mesenteric venous thrombosis, and right lower extremity DVT. Patient started on anticoagulation with Lovenox during this hospitalization. -Symptom management (Pain/other). Pain: 1. Continue oral morphine sulfate 30mg twice daily. 2. Continue oral hydromorphone 4-to-8mg every 3 hours as needed for breakthrough pain. 3. Methadone was initially considered but given prolonged QTc on EKG, it is contraindicated. -DPOA/Advanced Directives/POLST 1. Patient is DNAR/DNI -Family/emotional support -Good family support. is Laura. Aria (daughter) lives in [place]. Patient and are planning to move to [place] in the next couple of weeks to be closer to their daughter (see below for details) Additional Medical Diagnoses with primary management by Hospitalist team include : Acute abdominal pain, present on admission. Venous thromboembolic disease, acute and chronic. Diarrhea, acute. Hyperglycemia, acute. Acute kidney injury versus CKD. Non-anion gap metabolic acidosis. Inoperable pancreatic carcinoma. Coronary artery disease. BPH. Problems: End of Life Preferences DO NOT RESUSCITATE/DO NOT INTUBATE Disposition Likely discharge to home of friends in [place] in next 1-2 days when medically stable Resuscitation Status Resuscitation Status: DNR/DNI:Do Not Resuscitate/Intubate POLST Updates/Changes Previous POLST?: No Total time 25 minutes; >50% face to face with patient and/or family, providing counselling regarding plans and recommendations, and in care coordination with his/her medical teams. Palliative Brief Note Date of Service Mar 26, [address] James returned to reevaluate patient. Prior to visiting, reviewed his updated records in the EMR in detail and spoke with his bedside nurse and palliative care team. When I arrived, he is sitting up in bed. Oriented and appropriate. Feels ok about his current pain meds, doesn't want any changes. He notes that likely tomorrow he will go to [place] to stay with some friends after discharge. In 2-3 weeks his daughter will fly out from [place] and escort them back (by plane) and they will then move in with her for the time being. He will give his car that he has here, away for donation to some [place]. He is calm. Appears resigned. Says his is very stressed and not happy to leave the area and go back to [place]. On exam, vital signs noted. Labs and imaging studies reviewed. Krystle James MD Mar 26, 2017 13:40 Krystle James MD Mar 26, 2017 13:40
--- NOTE | 2017-03-26 14:29 | NUR ---
DISCHARGE Pt dc'd home this afternoon at 1400, accompanied off unit in w/c by PHYSICIAN SCRIBE and pt's . Vital signs stable, A&O, denies any pain/discomfort. KEVIN Dela Cruz deaccessed via IVT, all belongings returned. All instructions for diet, activity, medications, prescription and follow up reviewed with pt who reports understanding.
== END 2017-03-26 13:53 | disposition home or self-care (01) | DRG 435 ==
LOC: SED 03:41 → PCC 08:50 → MPC 03-23 18:53
PROVIDERS: ADMIT Internal Medicine; ATTEND Internal Medicine
PROC: 3E013GC Introduction of Other Therapeutic Substance into Subcutaneous Tissue, Percutaneous Approach (ICD-10-PCS; principal; 2017-03-26)
DX: C25.9 Malignant neoplasm of pancreas, unspecified (principal); I81 Portal vein thrombosis; I82.491 Acute embolism and thrombosis of other specified deep vein of right lower extremity; N17.9 Acute kidney failure, unspecified; E87.2 Acidosis; I82.411 Acute embolism and thrombosis of right femoral vein; I82.431 Acute embolism and thrombosis of right popliteal vein; I82.441 Acute embolism and thrombosis of right tibial vein; R19.7 Diarrhea, unspecified; R73.9 Hyperglycemia, unspecified; N40.0 Benign prostatic hyperplasia without lower urinary tract symptoms; Z66 Do not resuscitate